=== PATIENT | female | born 1940 | race Caucasian/White ===

== ENCOUNTER → 2017-02-02 | Outpatient (CLI) | payer MEDICARE ==
--- NOTE | 2017-02-03 07:46 | MM ---
Reason for exam: screening (asymptomatic). Last mammogram was performed 1 year ago. History: Patient is postmenopausal and has history of other cancer at age 55. Took estrogen for 20 years beginning at age 40. Physical Findings: A clinical breast exam by your physician is recommended on an annual basis and results should be correlated with mammographic findings. MG 3D Screening Mammo W/Cad Bilateral CC and MLO view(s) were taken. Prior study comparison: January 23, 2016, bilateral MG 3d screening mammo w/cad. October 24, 2014, bilateral MG screening mammo w CAD. There are scattered fibroglandular densities. Finding: There are stable typically benign calcifications. There is no discrete abnormality. No significant changes in finding since January 23, 2016 and October 24, 2014. ASSESSMENT: Benign, BI-RAD 2 RECOMMENDATION: Routine screening mammogram of both breasts in 1 year.
== END | disposition home or self-care (01) ==
LOC: RADMAMWWP 10:49
PROVIDERS: ATTEND Family Medicine
DX: Z12.31 Encounter for screening mammogram for malignant neoplasm of breast (principal)
CPT/HCPCS: 77063; G0202

== ENCOUNTER → 2017-11-26 | Outpatient (CLI) | payer MEDICARE ==
--- NOTE | 2017-11-26 10:02 | US ---
EXAMINATION TYPE: US duplex aorta DATE OF EXAM: 11/26/2017 COMPARISON: MRI chest 2016 CLINICAL HISTORY: I71.9 Aortic aneurysm of unspecified site w/o rupture; controlled HTN EXAM MEASUREMENTS: Abdominal Aorta: Proximal: 2.5cm Transverse Mid: 2.2cm Transverse Distal: 1.5cm Transverse Bifurcation: Right AVELINO 1.1cm Transverse; Left AVELINO 1.1cm Transverse Intimal wall thickening is noted in common iliac arteries especially on left. IMPRESSION: Mild degree atherosclerosis of the abdominal aorta and its branches with no sonographic e vidence of abdominal aortic aneurysm in the visualized portions of the abdominal aorta.
== END | disposition home or self-care (01) ==
LOC: RADUSWWP 09:24
PROVIDERS: ATTEND Family Medicine
DX: I70.0 Atherosclerosis of aorta (principal)
CPT/HCPCS: 93979

== ENCOUNTER → 2018-04-05 | Outpatient (CLI) | payer MEDICARE ==
--- NOTE | 2018-04-05 14:25 | BD ---
EXAMINATION TYPE: Axial Bone Density DATE OF EXAM: 04/05/2018 COMPARISON: NONE CLINICAL HISTORY: Postmenopausal female. Osteoporosis screening Height: 5 FT 2 IN Weight: 189 FRAX RISK QUESTIONS: Secondary Osteoporosis: 3. Menopause before 45: YES RISK FACTORS HISTORY OF: Family History of Osteoporosis: YES Active: YES Postmenopausal woman: TOTAL HYST AGE 40 Take estrogen and/or progesterone medications: TOOK HORMONES FROM [age] NO LONGER TAKES Lost more than 2 inches in height since high school: YES MEDICATIONS: Additional Medications: ATORVASTATIN, ATTENLOL, BABY ASPIRIN, PEPCID, VIT D, Additional History: EXAM MEASUREMENTS: Bone mineral densitometry was performed using the [employer] System. Bone mineral density as measured about the Lumbar spine is: ----- L1-L4(G/cm2): 1.426 T Score Values are as follows: ----- L2: 1.4 ----- L3: 2.2 ----- L4: 2.2 ----- L1-L4: 2.1 Bone mineral density has: INCREASED 1.8 % since study of: 2015 Bone mineral density about the R hip (g/cm2): 0.895 Bone mineral density about the L hip (g/cm2): 0.852 T Score values are as follows: -----R Neck: -1.0 -----L Neck: -1.3 -----R Total: -0.8 -----L Total: -0.3 Bone mineral density has: DECREASED -5.0 % since study of: 2015 IMPRESSION: Osteopenia (T Score between -2.5 and -1) with regards to the left femur. There is slightly increased risk of fracture and the patient may be considered for treatment. Re-Screen 2-5 years. NOTE: T-SCORE=SD OF THE YOUNG ADULT MEAN.
--- NOTE | 2018-04-11 10:10 | MM ---
Reason for exam: screening (asymptomatic). Last mammogram was performed 1 year and 2 months ago. History: Patient is postmenopausal and has history of other cancer at age 55. Took estrogen for 20 years beginning at age 40. Physical Findings: A clinical breast exam by your physician is recommended on an annual basis and results should be correlated with mammographic findings. MG 3D Screening Mammo W/Cad Bilateral CC and MLO view(s) were taken. Prior study comparison: February 02, 2017, bilateral MG 3d screening mammo w/cad. January 23, 2016, bilateral MG 3d screening mammo w/cad. There are scattered fibroglandular densities. No significant changes when compared with prior studies. ASSESSMENT: Negative, BI-RAD 1 RECOMMENDATION: Routine screening mammogram of both breasts in 1 year.
== END | disposition home or self-care (01) ==
LOC: RADMAMWWP 13:01
PROVIDERS: ATTEND Family Medicine
DX: Z12.31 Encounter for screening mammogram for malignant neoplasm of breast (principal); M85.852 Other specified disorders of bone density and structure, left thigh
CPT/HCPCS: 77063; 77067; 77080

== ENCOUNTER → 2018-08-31 | Outpatient (CLI) | payer MEDICARE ==
[2018-08-31 12:15] LABS: ALT 30 U/L (9-52); AST 20 U/L (14-36); Albumin 4.3 g/dL (3.5-5.0); Alkaline Phosphatase 63 U/L (38-126); Anion Gap 6 mmol/L; Basophils # (A) 0.1 k/uL (0-0.2); Basophils % (A) 1 %; Blood Urea Nitrogen 18 mg/dL (7-17); Calcium 9.6 mg/dL (8.4-10.2); Carbon Dioxide 29 mmol/L (22-30); Chloride 107 mmol/L (98-107); Eosinophils # (A) 0.1 k/uL (0-0.7); Eosinophils % (A) 2 %; Glucose 102 mg/dL (74-99); HCT 45.1 % (34.0-46.0); HGB 14.5 gm/dL (11.4-16.0); Lymphocytes # (A) 1.5 k/uL (1.0-4.8); Lymphocytes % (A) 29 %; MCHC 32.1 g/dL (31.0-37.0); MCV 93.2 fL (80.0-100.0); Mean Platelet Volume 10.6; Monocytes # (A) 0.4 k/uL (0-1.0); Monocytes % (A) 8 %; Neutrophils % (A) 58 %; Partial Thromboplastin Time 23.1 sec (22.0-30.0); Platelet Count 251 k/uL (150-450); Potassium 4.6 mmol/L (3.5-5.1); Prothrombin Time 10.5 sec (9.0-12.0); RBC 4.84 m/uL (3.80-5.40); RDW 14.7 % (11.5-15.5); Sodium 142 mmol/L (137-145); Total Bilirubin 0.5 mg/dL (0.2-1.3); Total Protein 7.1 g/dL (6.3-8.2); WBC 5.2 k/uL (3.8-10.6)
[2018-08-31 12:30] LABS: Appearance,Urine Clear (Clear); Bilirubin,Urine Negative (Negative); Blood,Urine Negative (Negative); Color,Urine Yellow; Glucose,Urine (UA) Negative (Negative); Ketones,Urine Negative (Negative); Leukocyte Esterase,Urine Negative (Negative); Nitrite,Urine Negative (Negative); PH, Urine 5.5 (5.0-8.0); Protein,Urine Negative (Negative); Specific Gravity,Urine 1.023 (1.001-1.035); Urobilinogen,Urine <2.0 mg/dL (<2.0)
== END | disposition home or self-care (01) ==
LOC: LABPAT 11:07
PROVIDERS: ATTEND Orthopaedic Surgery
DX: Z01.812 Encounter for preprocedural laboratory examination (principal); M17.11 Unilateral primary osteoarthritis, right knee
CPT/HCPCS: 36415; 80053; 81003; 85025; 85610; 85730; 87070

== ENCOUNTER → 2018-08-31 | Outpatient (CLI) | payer MEDICARE ==
[2018-08-31 22:34] LABS: Hemoglobin A1C 6.2 % (4.0-6.0)
== END ==
LOC: LABWHC1 11:02
PROVIDERS: ATTEND Family Medicine
DX: Z01.812 Encounter for preprocedural laboratory examination (principal); E11.9 Type 2 diabetes mellitus without complications
CPT/HCPCS: 36415; 83036

== ENCOUNTER 2018-09-12 09:14 | Inpatient (IN) | payer MEDICARE ==
[~2018-09-12 09:14] MED LIST: ACETAMINOPHEN TAB 500 MG TAB PO ONE; LIDOCAINE 1% 20 ML VIAL (10MG/ML) FOR IV START INTRADERMA PRN; ONDANSETRON 4 MG/2 ML VIAL IVP ONE; TRANEXAMIC ACID 1,000 MG in SODIUM CHLORIDE 0.9% 100 ML IVPB ONE; ceFAZolin IN SWFI 2 GM/20 ML SYRINGE IVP ONE
[2018-09-12 11:02] LABS: Glucose,Whole Blood 107 mg/dL (75-99)
[2018-09-12] MEDS: LACTATED RINGERS 1,000 ML IV SCH (11:02)
[2018-09-12] MEDS ORDERED: DEXAMETHASONE SOD PHOS (MDV) 100 MG/10 ML VIAL IV ONE (11:05)
[2018-09-12] MEDS ORDERED: fentaNYL (PF) 50 MCG/ML 2 ML AMP IV ONE (11:17)
[2018-09-12] MEDS ORDERED: MIDAZOLAM (PF) 2 MG/2 ML VIAL IV ONE (11:17)
[2018-09-12] MEDS ORDERED: LIDOCAINE 1% INJ 10MG/ML (20 ML MDV) ONE (12:14)
[2018-09-12] MEDS ORDERED: MIDAZOLAM 2 MG/2 ML VIAL ONE (12:14)
[2018-09-12] MEDS ORDERED: TRANEXAMIC ACID 1,000 MG/10 ML VIAL ONE (12:14)
[2018-09-12] MEDS ORDERED: SODIUM CHLORIDE 0.9% 100 ML BAG ONE (12:14)
[2018-09-12] MEDS ORDERED: PROPOFOL 10 MG/ML 20 ML VIAL IV ONE (12:14)
[2018-09-12] MEDS ORDERED: ROPIVACAINE 1,100 MG, SODIUM CHLORIDE 0.9% 500 ML 330 ML MISCELLANE PRN ×2 (12:39)
--- NOTE | 2018-09-12 12:42 | P.ONQ ---
Anesthesiology Proc Note - PNB - Peripheral Nerve Block Performed Right Adductor Canal Infusion Time Out Performed: Yes Procedure Start Time: 11:17 Indication: Acute Post-Operative Pain Specifically requested for management of pain by DrRicardo: Sam Alvarado Sedation Type: Sedate with meaningful contact maintained Preparation: Sterile Prep Position: Supine Catheter Depth at Skin (cm): 10 Catheter: Indwelling Needle Types: Other (see comment) (pajunk) Needle Size: 100mm (4") Needle Gauge: 18 Technique: Ultrasound Injectate: 0.5% Ropivacaine (see comment for volume) (20) Blood Aspirated: No Pain Paresthesia on Injection Noted: No Resistance on Injection: Normal Events: Uneventful and Well Tolerated
[2018-09-12] MEDS: ROPIVACAINE 246.25 MG, EPINEPHrine 0.5 MG, KETOROLAC 30 MG, cloNIDine HCL/PF 80 MCG, WA... MISCELLANE ONE ×10 (13:06→14:08)
[2018-09-12] MEDS ORDERED: ceFAZolin 3,000 MG in SODIUM CHLORIDE 0.9% IRRIGATIO 3,000 ML IRRIGATION ONE (13:08)
[2018-09-12] MEDS ORDERED: LACTATED RINGERS 1,000 ML IV ONE (14:16)
--- NOTE | 2018-09-12 14:23 | P.OP ---
Date of Procedure: 09/12/18 Procedure(s) Performed: PREOPERATIVE DIAGNOSIS: Right knee severe osteoarthritis with genu varum POSTOPERATIVE DIAGNOSIS: Right knee severe osteoarthritis with genu varum; 2. Diminished bone quality/osteopenia/osteoporosis OPERATION: Right knee cemented total replacement arthroplasty. ANESTHESIA: Spinal ESTIMATED BLOOD LOSS: 100 ml. HOUSE PAINTER HELPER: Katherine Conroy PA-C (assistance with: patient positioning, retraction, exposure, hemostasis, leg positioning, implantation, irrigation, closure, dr iris) COMPLICATIONS: None apparent. COMPONENTS IMPLANTED: Persona system from [employer] with tibial stem extension INDICATIONS: Mrs. Hidalgo is a 78 year old female with a history of knee osteoarthritis. The patient's knee is end-stage, and conservative management has failed. The operation of knee replacement has been discussed at length in the office, as well as potential risks and complications. These are inclusive of, but not limited to: bleeding, infection, scarring, discomfort, blood vessel and nerve damage, need for further surgery, failure to relieve symptoms, persistence, recurrence, or worsening of problems, loosening, dislocation, wear, blood clot, pulmonary embolism, , gait dysfunction, stiffness, and other risks as discussed in the office. The patient elects to proceed and the consent form has been signed. PROCEDURE: The patient was taken to the operating room and positioned on the operating room table in the supine position. Anesthesia was initiated. Care was taken to make sure that all pressure points were adequately padded. The operative lower extremity was prepped and draped in the usual aseptic fashion using ChloraPrep. Ioban drape was used for the case and the patient received intravenous antibiotics within one hour of the incision. A pneumotourniquet and leg harris were used for the case. The limb was exsanguinated with an Esmarch bandage and the tourniquet was inflated to 350 mmHg. Time-out was called confirming the patient's identity, side, procedure and administration of antibiotics. The incision was then created midline directly over the knee, carried down through skin and into the subcutaneous tissues and down to fascia. Full thickness subcutaneous medial flap was developed. Medial parapatellar arthrotomy was performed and the interior of the knee was inspected. There was end-stage osteoarthritis of the knee with a mild to moderate genu varum type deformity. The fat pad was excised and proximal medial release on the tibia was completed using meticulous dissection and a curved osteotome. The anterior cruciate ligament was taken down. Note was made of significant attrition of the anterior and significant degenerative appearance of the posterior cruciate ligaments. The exposure was excellent. The knee was flexed 90 degrees and the patella was everted. A spot was chosen on the femur approximately 1 cm anterior to the posterior cruciate ligament insertion and an intramedullary hole was created within the femur. The intramedullary guide was then set to 5 degrees of valgus. The distal cutting block was attached and pinned into position. An appropriate amount of distal femoral resection was set. The oscillating saw was then used to make the distal femoral cut. This cut was confirmed to be flat with the flat end of an osteotome. The retractors were placed around the tibia and the tibial surface was addressed. The angle and depth of resection was adjusted using an extramedullary cutting guide. The guide had a built-in 3 degree posterior slope cut. Once the cutting guide was adjusted appropriately and in line with the axis of the tibia and confirmed to be in good position in relation to the second metatarsal and transmalleolar axis, the tibial cut was then created with protection of the posterior neurovascular structures and the collateral ligaments. Note was made of diminished bone quality and therefore a short tibial stem extension was planned. The tibial cut surface was removed and sized. Femoral sizing was then accomplished using anterior referencing. Care was taken to analyze the posterior condyles for signs of deficiency or severe wear, and adjustments to the guide were made, as appropriate. 3 degree external rotation pins were placed. The cutting jig for the femur was applied to these pins. The planned cuts were further analyzed prior to performing them with the oscillating saw. No femoral notching was produced. Bone fragments were removed and the cut surfaces were finished, as necessary, with a reciprocating saw. Spacer block technique was then used to confirm that the flexion and extension gaps were equal. Soft tissue releases and adjustment of the tibial and/or f emoral cuts were made, as necessary, until the gaps were equal. This included release of the posterior cruciate ligament, which was tight in this patient and, if left unreleased, would have resulted in poor kinematics and possibly early loosening. The femur was then further finished for a posterior cruciate ligament substituting component. Patellar resurfacing was performed using a reamer. The size of the required patellar component was estimated and the patellar surface was then reamed down to a residual thickness which would recreate the burns paiute thickness with the component. The exact placement of the patellar component was adjusted for position based on preoperative x-rays and intraoperative findings. Prior to placing trial components, anesthetic solution consisting of ropivicaine with epinephrine, ketorolac, and clonidine was injected carefully and methodically in a grid pattern using aspiration technique into the soft tissue around the knee circumferentially, starting with the deeper tissues first and progressing to fascia, and then finally the skin/subcutaneous tissue. Particular care was taken when injecting the posterior capsule. The trial components were inserted. The tibial tray was allowed to self center and the patella was noted to track very well. The position of the tibial component was marked and the tibia was then finished for a stemmed tibial component. Cement was mixed on the back table and applied to the final components. Trial components were removed and the cut surfaces of the bone were pulse lavaged thoroughly and dried. Cement was then applied to the tibial surface and pressurized into the surface using finger pressurization technique. The tibial component with stem extension was then applied and excess cement was removed after it was impacted securely and noted to be flush with the cut surface. In similar fashion, the cement was applied to the cut femoral surface, pressurized in using finger pressurization and the component was impacted into place. Excess cement was removed. The polyethylene spacer was then implanted and locked into position. The patellar component was then applied in similar technique and a patellar clamp was used to hold the patella in place as the cement hardened. Once the cement had fully hardened, the knee was reinspected. Any other cement extrusion was removed and final kinematic testing showed range of motion from 0 to 130 degrees with excellent stability, both medially and laterally and appropriate alignment of the leg. Patellar tracking was excellent. The knee was then thoroughly pulse lavaged with normal saline. The tourniquet was deflated and hemostasis was obtained with electrocautery and IV tranexamic acid, 1 g given at the start of the operation and 1 g at the start of closure. Closure was with #2 Ethibond in the fascia/capsule and supplemented with #2 Quill, 2-0 Vicryl suture was used for the subcutaneous tissues and 3-0 Quill for the skin. Dermabond/Steri-Strips were then applied. A lightly compressive dressing was applied using Webril and an Chuy wrap. The patient was then transferred to flower hospital[facility] and taken to the recovery room in stable condition. Sponge and needle counts were correct.
[2018-09-12] MEDS ORDERED: ONDANSETRON 4 MG/2 ML VIAL IVP PRN (14:58)
[2018-09-12] MEDS ORDERED: HYDROmorphone 0.5 MG/0.5 ML SYRINGE IVP PRN ×3 (14:58)
[2018-09-12] MEDS ORDERED: NA PHOS,M-B/NA PHOS,DI-BA 133 ML ENEMA RECTAL PRN (14:58)
[2018-09-12] MEDS ORDERED: NALOXONE 0.4 MG/ML 1 ML VIAL IV PRN (14:58)
[2018-09-12] MEDS ORDERED: BISACODYL 10 MG SUPP RECTAL PRN (14:58)
[2018-09-12] MEDS ORDERED: MAGNESIUM HYDROXIDE 2,400 MG/10 ML CUP PO PRN (14:58)
[2018-09-12] MEDS ORDERED: HYDROcodone/APAP 5-325MG 1 EACH TAB PO PRN (14:58)
[2018-09-12] MEDS: HYDROmorphone 0.5 MG/0.5 ML SYRINGE IVP PRN ×2 (15:22→15:32)
--- NOTE | 2018-09-12 15:25 | XR ---
EXAMINATION TYPE: XR knee limited RT DATE OF EXAM: 09/12/2018 CLINICAL HISTORY: Right knee pain and arthritis status post total knee replacement. TECHNIQUE: Portable AP and crosstable lateral views of the right knee are obtained immediately posto peratively. COMPARISON: None FINDINGS: Metallic hardware from total right knee arthroplasty is seen and appears satisfactory in a lignment and position. There is evidence of recent surgery with diffuse subcutaneous gas and soft ti ssue swelling noted. IMPRESSION: METALLIC HARDWARE FROM TOTAL RIGHT KNEE ARTHROPLASTY IS SATISFACTORY IN ALIGNMENT.
[2018-09-12 17:01] VITALS: BMI 34.6
[2018-09-12 17:15] LABS: Glucose,Whole Blood 124 mg/dL (75-99)
[2018-09-12] MEDS: HYDROcodone/APAP 5-325MG 1 EACH TAB PO PRN (17:51)
[2018-09-12] MEDS ORDERED: ATENOLOL 25 MG TAB PO SCH (21:00)
[2018-09-12] MEDS ORDERED: SENNOSIDES-DOCUSATE SODIUM 1 EACH TAB PO SCH (21:00)
[2018-09-12 21:28] LABS: Glucose,Whole Blood 134 mg/dL (75-99)
[2018-09-12] MEDS ORDERED: TEMAZEPAM 15 MG CAP PO PRN (22:00)
[2018-09-12] MEDS: NIFEdipine XL 30 MG TAB.ER.24 PO SCH (22:11)
[2018-09-12] MEDS: ceFAZolin IN SWFI 2 GM/20 ML SYRINGE IVP SCH (22:11)
[2018-09-12] MEDS: LISINOPRIL 20 MG TAB PO SCH (22:12)
[2018-09-12] MEDS: FAMOTIDINE 20 MG TAB PO SCH (22:12)
--- NOTE | 2018-09-13 00:10 | CONS ---
CONSULTATION DATE OF CONSULTATION: September 12, 2018. REASON FOR CONSULTATION: Medical management requested by Dr. Alvarado. CONSULTATIONS: This is a very pleasant 78-year-old patient of Dr. Castillo who has undergone a right total knee arthroplasty. Postprocedure pain is controlled. No nausea, vomiting. No chest pain or short of breath. Did tolerate a light supper. at the bedside. Chronic stable medical conditions include GERD, hypertension, hyperlipidemia, anxiety, depression. REVIEW OF SYSTEMS: CONSTITUTIONAL: None. HEENT: None. RESPIRATORY: None. CARDIOVASCULAR: None. GASTROINTESTINAL: None. GENITOURINARY: None. MUSCULOSKELETAL: Arthritic pain in joints. DERMATOLOGICAL, HEMATOLOGIC, LYMPHATIC: none. PSYCHIATRY none. NEUROLOGICAL: None. PAST MEDICAL HISTORY: GERD, hyperlipidemia, hypertension, skin cancer. PAST SURGICAL HISTORY: Adenoidectomy, appendectomy, , hysterectomy, bilateral cataracts. PSYCH HISTORY: Anxiety, depression. SOCIAL HISTORY: No smoking. No alcohol. 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 . FAMILY HISTORY: Throat cancer. HOME MEDICATIONS: 1. Effexor XR 75 mg a day. 2. Altace 500 mg b.i.d. 3. Procardia XL 30 mg b.i.d. 4. Multivitamin tab p.o. daily. 5. Pepcid 20 mg b.i.d. 6. Vitamin D3, 41677 units p.o. daily. 7. Lipitor 10 mg p.o. daily. 8. Tenormin 25 mg q.h.s. 9. Aspirin 81 mg p.o. daily. 10.Senokot S 1 tablet p.o. b.i.d. 11.Xarelto 10 mg p.o. daily. 12.Sedalia 5 1-2 tablets q.4h 6 p.r.n. 13.Aspirin 81 mg daily. ALLERGIES: None. PHYSICAL EXAMINATION: VITAL SIGNS: Temperature 98.1, pulse 54, respiratory 18, blood pressure 144/71, pulse ox 96% on 2 L. GENERAL APPEARANCE: Well built, BMI 34.6. Sitting up, awake. EYES: Pupils are equal. Conjunctivae normal. HEENT: External appearance of nose and ears normal. Oral cavity normal. NECK: JVD not raised. Mass not palpable. RESPIRATORY: Effort normal. LUNGS fair entry. CARDIOVASCULAR: First and second sounds normal. No edema. ABDOMEN: Soft, nontender. Liver and spleen not palpable. LYMPHATIC: No lymph nodes palpable in the neck and axilla. PSYCHIATRY: Alert and oriented x3. Mood and affect normal. NEUROLOGICAL: Pupils equal. Cranial nerves grossly intact. Power and sensation grossly intact. MUSCULOSKELETAL: Dressing over the right knee. INVESTIGATIONS: Accu-Cheks noted. ASSESSMENT: 1. Right total knee arthroplasty. 2. Obesity, BMI 34.6. 3. Gastroesophageal reflux disease. 4. Essential hypertension. 5. Hyperlipidemia. 6. Anxiety and depression not otherwise specified. PLAN: Home medications to continue. Patient DVT prophylaxis per Surgery. Care was discussed with the patient and . Questions were answered. The patient is on Xarelto. Thank you Dr. Alvarado. Copy to Dr. Castillo. MMLINDSEYL / IJN: [id number] /
[2018-09-13] MEDS: HYDROcodone/APAP 5-325MG 1 EACH TAB PO PRN (04:39)
[2018-09-13] MEDS: ceFAZolin IN SWFI 2 GM/20 ML SYRINGE IVP SCH (04:41)
[2018-09-13 07:22] LABS: Glucose,Whole Blood 121 mg/dL (75-99)
[2018-09-13 07:55] LABS: Basophils % (A) 0 %; Eosinophils % (A) 0 %; HGB 12.7 gm/dL (11.4-16.0); Lymphocytes # (A) 1.3 k/uL (1.0-4.8); Lymphocytes % (A) 9 %; MCH 29.3 pg (25.0-35.0); MCHC 31.1 g/dL (31.0-37.0); MCV 94.4 fL (80.0-100.0); Mean Platelet Volume 10.6; Monocytes # (A) 1.1 k/uL (0-1.0); Monocytes % (A) 8 %; Neutrophils # (A) 11.1 k/uL (1.3-7.7); Neutrophils % (A) 81 %; Platelet Count 229 k/uL (150-450); RBC 4.34 m/uL (3.80-5.40); WBC 13.7 k/uL (3.8-10.6)
[2018-09-13] MEDS: LACTATED RINGERS 1,000 ML IV SCH (08:03)
[2018-09-13] MEDS: FAMOTIDINE 20 MG TAB PO SCH (08:09)
[2018-09-13] MEDS: NIFEdipine XL 30 MG TAB.ER.24 PO SCH (08:09)
[2018-09-13] MEDS: LISINOPRIL 20 MG TAB PO SCH (08:09)
[2018-09-13 08:41] VITALS: RESP 16
[2018-09-13] MEDS ORDERED: ATORVASTATIN 10 MG TAB PO SCH (09:00)
[2018-09-13] MEDS ORDERED: MULTIVITAMINS, THERA 1 EACH TAB PO SCH (09:00)
[2018-09-13] MEDS ORDERED: VENLAFAXINE HCL ER 75 MG CAP PO SCH (09:00)
[2018-09-13] MEDS ORDERED: RIVAROXABAN 10 MG TAB PO SCH (09:00)
[2018-09-13 11:27] LABS: Glucose,Whole Blood 95 mg/dL (75-99)
--- NOTE | 2018-09-13 12:02 | P.DS ---
Providers Date of admission: 09/12/18 10:27 Expected date of discharge: 09/13/18 Attending physician: Sam Alvarado Consults: 09/12/18 14:58 Consult Physician Routine Consulting Provider: Bennett Castillo Consult Reason/Comments: Medical Management Do you want consulting provider notified?: Yes 09/12/18 16:27 Consult Physician Routine Consulting Provider: Chris Rocha Consult Reason/Comments: medical mangement Do you want consulting provider notified?: Already Contacted Primary care physician: Bennett Castillo - Discharge Diagnosis(es) (1) Status post total right knee replacement Status: Acute (2) Osteoarthritis of right knee Status: Acute (3) GERD (gastroesophageal reflux disease) Status: Acute (4) Hypertension Status: Acute (5) Hyperlipidemia Status: Acute Hospital Course: This is a pleasant 78-year-old female last seen in our office with complaints of right knee pain. Patient has known history of degenerative arthritis of the right knee and presented to discuss options. After discussion and consideration, patient elected to proceed with a total knee arthroplasty of the right knee. The patient was seen preoperatively and medically cleared for surgery by her primary care physician. The patient was admitted to [facility] and underwent right total knee arthroplasty on 09/12/[address] Alvarado. The procedure was performed without complications or sequelae. The patient has done well postoperatively. The patient was seen and evaluated at bedside today and denies any new complaints. Pain is reasonably controlled. Dressing is clean dry and intact. Incision looks fine with no erythema or active drainage. Calf is soft and nontender. The patient has full foot and ankle motion without difficulty. Patient's right lower extremity is neurovascular intact. Patient is orthopedically stable for discharge to home today. Pertinent Studies: Laboratory Tests 09/13/18 07:07 WBC 13.7 H RBC 4.34 Hgb 12.7 Hct 41.0 Patient Condition at Discharge: Stable Plan - Discharge Summary Discharge Rx Participant: Yes New Discharge Prescriptions: New HYDROcodone/APAP 5-325MG [Lincoln 5-325] 1 - 2 each PO Q4-6H PRN #50 tab PRN Reason: Pain Sennosides-Docusate Sodium [Senokot-S] 1 tab PO BID #60 tablet Rivaroxaban [Xarelto] 10 mg PO DAILY #5 tab Aspirin [Adult Low Dose Aspirin EC] 81 mg PO DAILY #1 tablet.dr Suzi Angeles Multivitamins, Thera [Multivitamin (formulary)] 1 tab PO DAILY Famotidine [Pepcid] 20 mg PO BID Ramipril [Altace] 5 mg PO BID Atorvastatin [Lipitor] 10 mg PO DAILY Atenolol [Tenormin] 25 mg PO HS NIFEdipine XL [Procardia XL] 30 mg PO BID Cholecalciferol (Vitamin D3) [Vitamin D3] 4,000 unit PO DAILY Aspirin [Adult Low Dose Aspirin EC] 81 mg PO DAILY Venlafaxine HCl [Effexor XR] 75 mg PO DAILY Discharge Medication List Aspirin [Adult Low Dose Aspirin EC] 81 mg PO DAILY 09/01/18 [History] Atenolol [Tenormin] 25 mg PO HS 09/01/18 [History] Atorvastatin [Lipitor] 10 mg PO DAILY 09/01/18 [History] Cholecalciferol (Vitamin D3) [Vitamin D3] 4,000 unit PO DAILY 09/01/18 [History] Famotidine [Pepcid] 20 mg PO BID 09/01/18 [History] Multivitamins, Thera [Multivitamin (formulary)] 1 tab PO DAILY 09/01/18 [History] NIFEdipine XL [Procardia XL] 30 mg PO BID 09/01/18 [History] Ramipril [Altace] 5 mg PO BID 09/01/18 [History] Aspirin [Adult Low Dose Aspirin EC] 81 mg PO DAILY #1 tablet. 09/12/18 [Rx] HYDROcodone/APAP 5-325MG [Lincoln 5-325] 1 - 2 each PO Q4-6H PRN #50 tab 09/12/18 [Rx] Rivaroxaban [Xarelto] 10 mg PO DAILY #5 tab 09/12/18 [Rx] Sennosides-Docusate Sodium [Senokot-S] 1 tab PO BID #60 tablet 09/12/18 [Rx] Venlafaxine HCl [Effexor XR] 75 mg PO DAILY 09/12/18 [History] Follow up Appointment(s)/Referral(s): Katherine Conroy PAC [PHYSICIAN [facility]] - 09/28/18 2:00 pm [facility], [NON-STAFF] - As Needed Bennett Castillo MD [Primary Care Provider] - 09/21/18 9:15 am [facility] Saucedo [NON-STAFF] - As Needed (Long hinged knee brace) Activity/Diet/Wound Care/Special Instructions: May bear weight as tolerated. May shower after 48 hours if no drainage. Discharge Disposition: HOME WITH HOME HEALTH SERVICES
--- NOTE | 2018-09-13 15:30 | P.PN ---
Progress Note - Text 09/13 702am 78-year-old female status post total knee replacement by Dr. Alvarado. Patient has an On-Q pump for postop pain control with adequate relief and she has a VAS of 3. Continue On-Q pump infusion
[2018-09-13 16:32] VITALS: BP 112/60; PULSE 58; TEMP 97.9
--- NOTE | 2018-09-14 06:27 | PN ---
PROGRESS NOTE DATE OF SERVICE: 09/13/2018 PRESENTING COMPLAINT: Right total knee arthroplasty. INTERVAL HISTORY: Patient is status post right total knee arthroplasty. Some pain is present. Did tolerate a meal. No nausea, vomiting. Did work with therapy. Overall feeling better. REVIEW OF SYSTEMS: Done for constitutional, cardiovascular, GI, pulmonary; relevant findings as above. CURRENT MEDICATIONS: Reviewed. PHYSICAL EXAMINATION: VITAL SIGNS: Temperature 97.6, pulse 48, respiration 16, blood pressure 137/70, pulse ox 94 percent on room air. LUNGS fair air entry. CARDIOVASCULAR: First and second sounds normal. ABDOMEN: Soft, nontender. Liver and spleen not palpable. PSYCHIATRY: Alert and oriented times three. Mood and affect normal. EXTREMITIES: Right knee in a dressing. INVESTIGATIONS: White count 13.7, hemoglobin 12.7. Accu-Cheks are noted. ASSESSMENT: 1. Right total knee arthroplasty. 2. Obesity; BMI 34.6. 3. Gastroesophageal reflux disease. 4. Essential hypertension. 5. Hyperlipidemia. 6. Anxiety and depression, not otherwise specified. 7. Mild leukocytosis likely reactive from surgery, clinically no evidence of infection. PLAN: Overall doing much better. If discharged, should follow up with her family doctor. MMODL / IJN: [id number] /
== END 2018-09-13 15:30 | disposition home health service (06) | DRG 470 ==
LOC: 2ORMAIN 10:27 → 4SSUR 15:45
PROVIDERS: ADMIT Orthopaedic Surgery; ATTEND Orthopaedic Surgery
PROC: 0SRC0J9 Replacement of Right Knee Joint with Synthetic Substitute, Cemented, Open Approach (ICD-10-PCS; principal; 2018-09-12 13:15)
DX: M17.11 Unilateral primary osteoarthritis, right knee (principal); M21.161 Varus deformity, not elsewhere classified, right knee; M81.0 Age-related osteoporosis without current pathological fracture; K21.9 Gastro-esophageal reflux disease without esophagitis; I10 Essential (primary) hypertension; E78.5 Hyperlipidemia, unspecified; F32.9 Major depressive disorder, single episode, unspecified; D72.829 Elevated white blood cell count, unspecified; E66.9 Obesity, unspecified; Z68.34 Body mass index [BMI] 34.0-34.9, adult; F41.9 Anxiety disorder, unspecified; Z79.82 Long term (current) use of aspirin; Z79.899 Other long term (current) drug therapy; Z85.828 Personal history of other malignant neoplasm of skin; Z90.710 Acquired absence of both cervix and uterus; Z98.890 Other specified postprocedural states; Z98.891 History of uterine scar from previous surgery; Z98.42 Cataract extraction status, left eye; Z98.41 Cataract extraction status, right eye; Z80.0 Family history of malignant neoplasm of digestive organs
CPT/HCPCS: 85025; 88300

== ENCOUNTER → 2019-04-18 | Outpatient (CLI) | payer MEDICARE ==
--- NOTE | 2019-04-19 10:21 | MM ---
Reason for exam: screening (asymptomatic). Last mammogram was performed 1 year ago. History: Patient is postmenopausal and has history of other cancer at age 55. Took estrogen for 20 years beginning at age 40. Physical Findings: A clinical breast exam by your physician is recommended on an annual basis and results should be correlated with mammographic findings. MG 3D Screening Mammo W/Cad Bilateral CC and MLO view(s) were taken. Prior study comparison: April 05, 2018, bilateral MG 3d screening mammo w/cad. February 02, 2017, bilateral MG 3d screening mammo w/cad. The breast tissue is heterogeneously dense. This may lower the sensitivity of mammography. Stable benign calcifications. There is no discrete abnormality. No significant changes when compared with prior studies. ASSESSMENT: Benign, BI-RAD 2 RECOMMENDATION: Routine screening mammogram of both breasts in 1 year.
== END ==
LOC: RADMAMWWP 09:09
PROVIDERS: ATTEND Family Medicine
DX: Z12.31 Encounter for screening mammogram for malignant neoplasm of breast (principal)
CPT/HCPCS: 77063; 77067

== ENCOUNTER → 2020-05-06 | Outpatient (CLI) | payer MEDICARE ==
--- NOTE | 2020-05-07 13:33 | MM ---
Reason for exam: screening (asymptomatic). Last mammogram was performed 1 year and 1 month ago. History: Patient is postmenopausal and has history of other cancer at age 55. Took estrogen for 20 years beginning at age 40. Physical Findings: A clinical breast exam by your physician is recommended on an annual basis and results should be correlated with mammographic findings. MG 3D Screening Mammo W/Cad Bilateral CC and MLO view(s) were taken. Prior study comparison: April 18, 2019, bilateral MG 3d screening mammo w/cad. April 05, 2018, bilateral MG 3d screening mammo w/cad. There are scattered fibroglandular densities. No significant changes when compared with prior studies. ASSESSMENT: Benign, BI-RAD 2 RECOMMENDATION: Routine screening mammogram of both breasts in 1 year.
== END | disposition home or self-care (01) ==
LOC: RADMAMWWP 12:45
PROVIDERS: ATTEND Family Medicine
DX: Z12.31 Encounter for screening mammogram for malignant neoplasm of breast (principal)
CPT/HCPCS: 77063; 77067

== ENCOUNTER → 2020-11-01 | Outpatient (CLI) | payer MEDICARE ==
--- NOTE | 2020-11-01 13:37 | US ---
EXAMINATION TYPE: US kidneys/renal and bladder DATE OF EXAM: 11/01/2020 COMPARISON: NONE CLINICAL HISTORY: R39.9 Urinary symptoms. Recent UTI, prior left renal stones EXAM MEASUREMENTS: Right Kidney: 10.4 x 5.6 x 5.4 cm Left Kidney: 10.8 x 4.4 x 6.0 cm Post Void Residual Volume: 8.8 mL Right Kidney: No hydronephrosis or masses seen; hyperechoic vessel rose are noted mid inferior pole suggesting vascular wall calcifications Left Kidney: mid pole shadowing calcifications noted = 1.0 x 0.9 x 0.8cm; small hyperechoic foci note d mid cortex ; hyperechoic vessel wall calcifications noted medially Bladder: wnl Bilateral Jets seen: yes, but small left ureteral jet seen Normal Post Void Residual: yes Incidental note is made of borderline thickening of the gallbladder. This could be related to incompl ete distention. IMPRESSION: 1. Nonobstructing left renal stone.
== END | disposition home or self-care (01) ==
LOC: RADUSWWP 12:06
PROVIDERS: ATTEND Family Medicine
DX: N20.0 Calculus of kidney (principal); K80.20 Calculus of gallbladder without cholecystitis without obstruction
CPT/HCPCS: 76770

== ENCOUNTER → 2021-06-19 | Outpatient (CLI) | payer MEDICARE ==
--- NOTE | 2021-06-20 09:21 | MM ---
Reason for exam: screening (asymptomatic). Last mammogram was performed 1 year and 1 month ago. History: Patient is postmenopausal and has history of other cancer at age 55. Took estrogen for 20 years beginning at age 40. Physical Findings: A clinical breast exam by your physician is recommended on an annual basis and results should be correlated with mammographic findings. MG 3D Screening Mammo W/Cad Bilateral CC and MLO view(s) were taken. XCCL view(s) were taken of the left breast. Prior study comparison: May 06, 2020, bilateral MG 3d screening mammo w/cad. April 18, 2019, bilateral MG 3d screening mammo w/cad. There are scattered fibroglandular densities. Stable benign calcifications. There is no discrete abnormality. No significant changes when compared with prior studies. ASSESSMENT: Benign, BI-RAD 2 RECOMMENDATION: Routine screening mammogram of both breasts in 1 year.
== END | disposition home or self-care (01) ==
LOC: RADMAMWWP 13:06
PROVIDERS: ATTEND Family Medicine
DX: Z12.31 Encounter for screening mammogram for malignant neoplasm of breast (principal); Z78.0 Asymptomatic menopausal state
CPT/HCPCS: 77063; 77067

== ENCOUNTER 2022-09-03 11:02 | Day surgery (SDC) | payer MEDICARE ==
[~2022-09-03 11:02] MED LIST changes: -ACETAMINOPHEN TAB 500 MG TAB PO ONE; +ACETAMINOPHEN TAB 500 MG TAB PO PRN; +HEPARIN SODIUM,PORCINE/PF 5,000 UNIT/0.5 ML SYRINGE SQ PRN; -LIDOCAINE 1% 20 ML VIAL (10MG/ML) FOR IV START INTRADERMA PRN; -ONDANSETRON 4 MG/2 ML VIAL IVP ONE; +Pre Op ABX Message 1 EACH MISC MISCELLANE ONE; -TRANEXAMIC ACID 1,000 MG in SODIUM CHLORIDE 0.9% 100 ML IVPB ONE; -ceFAZolin IN SWFI 2 GM/20 ML SYRINGE IVP ONE
[2022-09-03] MEDS ORDERED: DEXAMETHASONE SOD PHOSPHATE 4 MG/ML 1 ML VIAL IV ONE (11:45)
[2022-09-03] MEDS ORDERED: ALPRAZolam 0.25 MG TAB PO PRN (11:45)
[2022-09-03] MEDS ORDERED: LACTATED RINGERS 1,000 ML IV SCH (11:45)
[2022-09-03] MEDS ORDERED: fentaNYL (PF) 50 MCG/ML 2 ML AMP IV PRN (11:45)
[2022-09-03] MEDS ORDERED: ONDANSETRON 4 MG/2 ML VIAL IVP ONE (11:45)
[2022-09-03 12:07] LABS: Glucose,Whole Blood 107 mg/dL (70-110)
[2022-09-03] MEDS ORDERED: LIDOCAINE 1% INJ 10MG/ML (20 ML MDV) SQ ONE (12:39)
--- NOTE | 2022-09-03 12:55 | P.NAPBC ---
NAPBC Queries - NAPBC Queries Was patient's case review presented at [facility] tumor board? If no, comment.: Yes Was patient's pathology reviewed at [facility]? If no, comment.: Yes Was breast conservation surgery offered? If no, comment.: Yes Was sentinel node biopsy offered? If no, comment.: Yes Was diagnosis confirmed by percutaneous core biopsy? If no, comment.: Yes Is patient mastectomy patient?: No Was a preop referral to reconstructive surgeon offered?: Yes Clinical Stage: 1
--- NOTE | 2022-09-03 13:54 | NM ---
EXAMINATION TYPE: NM sentinel node injection DATE OF EXAM: 09/03/2022 COMPARISON: NONE HISTORY: Breast cancer TECHNIQUE AND FINDINGS: The procedure of sentinel lymph node injection was explained to the patient. The benefits, alternatives, and risks were discussed. An informed consent was then obtained. Overlying skin is cleaned with sterile alcohol. Following this, 524 uCi Tc99m Tilmanocept was inject ed in the upper outer aspect of the left nipple intradermally. The patient tolerated the procedure well without any immediate complication. The patient was kept in the radiology department for short stay after the procedure and then taken to surgery for surgical p rocedure what is presumed intraoperative gamma probe will be used for sentinel lymph node detection. IMPRESSION: Left breast radiotracer injection for sentinel node localization as above.
[2022-09-03] MEDS ORDERED: KETOROLAC 15 MG/ML 1 ML VIAL ONE (14:40)
[2022-09-03] MEDS ORDERED: HYDROmorphone (PF) 1 MG/ML ONE (14:40)
[2022-09-03] MEDS ORDERED: LIDOCAINE 2% INJ 20 MG/ML (2 ML VIAL) ONE (14:40)
[2022-09-03] MEDS ORDERED: PROPOFOL 10 MG/ML 20 ML VIAL IV ONE (14:40)
[2022-09-03] MEDS ORDERED: fentaNYL (PF) 50 MCG/ML 2 ML AMP ONE (14:40)
[2022-09-03] MEDS ORDERED: SODIUM CHLORIDE 0.9% 100 ML with ceFAZolin 2,000 MG IV ONE ×2 (14:46)
[2022-09-03] MEDS ORDERED: METHYLENE BLUE 10 MG/ML (10 ML VIAL) MISCELLANE ONE (14:59)
[2022-09-03] MEDS ORDERED: BUPIVACAINE (PF) 0.25% 30 ML VIAL SQ ONE ×2 (15:52→16:15)
[2022-09-03] MEDS ORDERED: LACTATED RINGERS 1,000 ML IV ONE (16:16)
[2022-09-03 16:36] VITALS: TEMP 97.5
[2022-09-03] MEDS ORDERED: traMADol 50 MG TAB PO PRN (16:38)
[2022-09-03] MEDS ORDERED: NALOXONE 0.4 MG/ML 1 ML VIAL IV PRN (16:38)
[2022-09-03] MEDS ORDERED: ACETAMINOPHEN TAB 325 MG TAB PO PRN (16:38)
--- NOTE | 2022-09-03 16:42 | P.OP ---
Date of Procedure: 09/03/22 Procedure(s) Performed: PREOPERATIVE DIAGNOSIS: Left breast cancer POSTOPERATIVE DIAGNOSIS: Same PROCEDURE: Left Breast wire localization lumpectomy with sentinel lymph node biopsy SURGEON: Sukumar EBL: 25 mL ANESTHESIA: General COMPLICATIONS: None OPERATIVE PROCEDURE: Patient was placed on the operating room table in the supine position. 2 mL of methylene blue was injected into the subareolar space. The breast was then massaged for 5 minutes. The breast was prepped and draped in usual sterile fashion. The left axilla was addressed at that time. The hot spot in the left axilla was identified. The counts were very low externally. A small curvilinear incision was made using the scalpel. Dissection down through the subcutaneous tissues took place using electrocautery. Using the neoprobe I identified a total of a single 1.5 cm lymph node that appeared fatty replaced. There was no induration. There was no blue color in the axilla. After removing that lymph node there was minimal residual radioactivity. I did have a small area of fatty tissue that may have contained a lymphatic or a very tiny lymph node that was also sent and labeled a sentinel node however this may represent just fatty tissue and lymphatics. These were both sent to pathology for permanent sectioning. The surgical site was inspected and no bleeding was seen. The subcutaneous tissues were closed using 3-0 Vicryl sutures. The skin was closed using 4-0 Monocryl sutures. The wire entrance site was then addressed. This was present at the 4:00 location. A curvilinear incision was made adjacent to the wire entrance site. I followed the wire down into the breast tissue. An adequate lumpectomy specimen then took place around the wire. Margins of 1.5-2 cm worth attempted to be achieved. Palpation of the specimen suggested that the medial margin was somewhat close. I took an additional margin medially and this margin was painted the appropriate color on the new margin side. The initial specimen was also painted the appropriate 6 colors. Clips were used to identify the lumpectomy cavity. The clip was confirmed to be within the lumpectomy specimen by radiology. The subcutaneous tissues were closed using 3-0 Vicryl sutures. The skin was closed using a running 4-0 Monocryl stitch. Skin glue wa s then applied. DISPOSITION: Stable to recovery room
[2022-09-03 18:40] VITALS: RESP 16
[2022-09-03 19:47] VITALS: BP 152/70; PULSE 67
== END 2022-09-03 19:37 | disposition home or self-care (01) ==
LOC: OR 11:02
PROVIDERS: ATTEND Surgery
DX: D05.12 Intraductal carcinoma in situ of left breast (principal); N60.12 Diffuse cystic mastopathy of left breast; I10 Essential (primary) hypertension; E78.5 Hyperlipidemia, unspecified; Z79.899 Other long term (current) drug therapy
CPT/HCPCS: 19301; 38525; 88342; 88307; 88341; 77065; 76098; 19285; 38792; C1819; A9520; J2405; J0690; J2001 ×2; Q9968; J3010; J1170; J1885; J2704; J1644

== ENCOUNTER → 2023-02-23 | Outpatient (CLI) | payer MEDICARE ==
--- NOTE | 2023-02-23 13:53 | CA ---
Transthoracic Echo Report Name: Maranda Hidalgo Age: 82 Gender: F : 1940 Exam Date: 02/23/2023 11:22 Exam Location: [facility] Echo Ht (in): 62 Wt (lb): 195 Ordering Physician: Bennett Castillo MD Attending/Referring Phys: Lindsey Cintron Rules Examiner Amber iYn RDCS Procedure CPT: Indications: I34.0 NONRHEUMATIC MITRAL (VALVE) INSUFFICIENCY Cardiac Hx: Technical Quality: Fair Contrast 1: Total Dose (mL): Contrast 2: Total Dose (mL): MEASUREMENTS (Male / Female) Normal Values 2D ECHO LV Diastolic Diameter PLAX 5.2 cm 4.2 - 5.9 / 3.9 - 5.3 cm LV Systolic Diameter PLAX 3.1 cm IVS Diastolic Thickness 1.3 cm 0.6 - 1.0 / 0.6 - 0.9 cm LVPW Diastolic Thickness 1.4 cm 0.6 - 1.0 / 0.6 - 0.9 cm LV Relative Wall Thickness 0.5 RV Internal Dim ED PLAX 2.4 cm LA Volume 156.3 cm??? 18 - 58 / 22 - 52 cm??? LA Volume Index 77.8 cm???/m??? 16 - 28 cm???/m??? M-MODE Aortic Root Diameter MM 3.1 cm LA Systolic Diameter MM 5.4 cm LA Ao Ratio MM 1.7 AV Cusp Separation MM 2.2 cm DOPPLER AV Peak Velocity 136.4 cm/s AV Peak Gradient 7.4 mmHg AV Mean Velocity 96.9 cm/s AV Mean Gradient 4.1 mmHg AV Velocity Time Integral 31.7 cm LVOT Peak Velocity 122.2 cm/s LVOT Peak Gradient 6.0 mmHg LVOT Velocity Time Integral 31.9 cm MV Area PHT 2.7 cm??? Mitral E Point Velocity 114.7 cm/s Mitral A Point Velocity 98.5 cm/s Mitral E to A Ratio 1.2 MV Deceleration Time 278.5 ms MV E' Velocity 5.9 cm/s Mitral E to MV E' Ratio 19.3 TR Peak Velocity 251.5 cm/s TR Peak Gradient 25.3 mmHg Right Ventricular Systolic Press 30.2 mmHg FINDINGS Left Ventricle Mildly increased left ventricular wall thickness. Left ventricular cavity size normal. Normal left ventricular systolic function with no obvious regional wall motion abnormalities. Left ventricular ejection fraction is estimated at 55-60 %. Right Ventricle Normal right ventricular size and function. Right ventricular systolic pressure within normal limits. Right Atrium Normal right atrial size. Left Atrium Severely increased left atrial volume. Severely increased left atrial area. Mitral Valve Mitral valve thickened. Moderate mitral annular calcification. Moderate-to- severe mitral regurgitation. Centrally directed mitral regurgitation jet. Aortic Valve Trileaflet aortic valve. No aortic stenosis. Trace aortic regurgitation. Tricuspid Valve Structurally normal tricuspid valve. Mild tricuspid regurgitation. Pulmonic Valve Structurally normal pulmonic valve. Mild pulmonic regurgitation. Pericardium No pericardial effusion. Aorta Normal size aortic root and proximal ascending aorta. CONCLUSIONS LVH with preserved systolic function Moderate to severe mitral regurgitation, central jet Previewed by: Dr. Kenny Madrid MD (Electronically Signed) Final Date: 23 February 2023 13:52
== END | disposition home or self-care (01) ==
LOC: RADECHMAIN 11:04
PROVIDERS: ATTEND Family Medicine
DX: I34.0 Nonrheumatic mitral (valve) insufficiency (principal)
CPT/HCPCS: 93306

== ENCOUNTER 2023-04-28 10:26 | Inpatient (IN) | payer MEDICARE ==
[2023-04-28 11:09] LABS: Basophils # (A) 0.1 k/uL (0-0.2); Basophils % (A) 1 %; Eosinophils # (A) 0.2 k/uL (0-0.7); Eosinophils % (A) 2 %; HCT 47.3 % (34.0-46.0); HGB 15.5 gm/dL (11.4-16.0); Lymphocytes # (A) 1.2 k/uL (1.0-4.8); Lymphocytes % (A) 13 %; MCH 30.9 pg (25.0-35.0); MCHC 32.8 g/dL (31.0-37.0); MCV 94.1 fL (80.0-100.0); Mean Platelet Volume 10.1; Monocytes # (A) 0.6 k/uL (0-1.0); Monocytes % (A) 7 %; Neutrophils # (A) 6.5 k/uL (1.3-7.7); Neutrophils % (A) 74 %; Platelet Count 352 k/uL (150-450); RBC 5.02 m/uL (3.80-5.40); WBC 8.7 k/uL (3.8-10.6)
[2023-04-28 11:23] LABS: ALT 20 U/L (4-34); AST 26 U/L (14-36); African American GFR (CKD) 69 (>60 ml/min/1.73 sqM); Albumin 3.7 g/dL (3.5-5.0); Alkaline Phosphatase 78 U/L (38-126); Anion Gap 12 mmol/L; Blood Urea Nitrogen 18 mg/dL (7-17); Calcium 9.5 mg/dL (8.4-10.2); Carbon Dioxide 27 mmol/L (22-30); Chloride 103 mmol/L (98-107); Glucose 147 mg/dL (74-99); Non-African American GFR(CKD) 60 (>60 ml/min/1.73 sqM); Potassium 4.6 mmol/L (3.5-5.1); Sodium 142 mmol/L (137-145); Total Bilirubin 0.6 mg/dL (0.2-1.3); Total Protein 6.7 g/dL (6.3-8.2)
[2023-04-28] MEDS ORDERED: HEPARIN SODIUM 1,000 UN/ML (10ML VL) IV ONE (11:24)
[2023-04-28] MEDS ORDERED: HEPARIN SODIUM 1,000 UN/ML (10ML VL) IV PRN (11:24)
[2023-04-28 11:27] LABS: Partial Thromboplastin Time 21.9 sec (22.0-30.0); Prothrombin Time 10.7 sec (10.0-12.5)
--- NOTE | 2023-04-28 11:30 | ED ---
General Adult HPI - General Chief complaint: Arrhythmia/Palpitations Stated complaint: Afib Time Seen by Provider: 04/28/23 10:38 Source: patient Mode of arrival: EMS Limitations: no limitations - History of Present Illness Initial comments: Dictation was produced using [employer] dictation software. please excuse any grammatical, word or spelling errors. Chief Complaint: 83-year-old female presents to the emergency department from urgent care for new onset A. fib History of Present Illness: Patient is an 83-year-old female history of breast cancer she recently drove back from [facility] by car. She underwent home develop significant coughing. She is told to go to urgent care by her . She went to an urgent care where she is found to have irregular heart rate. She has no history of A. fib. She has history of breast cancer. She states that her lower extremities bilaterally swollen. Denies any shortness of breath. Denies palpitations. The ROS documented in this emergency department record has been reviewed and confirmed by me. Those systems with pertinent positive or negative responses have been documented in the HPI. All other systems are other negative and/or noncontributory. - Related Data Home Medications Medication Instructions Recorded Confirmed Atorvastatin [Lipitor] 10 mg PO DAILY 09/01/18 09/03/22 Cholecalciferol (Vitamin D3) 2,000 unit PO DAILY 09/01/18 09/03/22 [Vitamin D3] Famotidine [Pepcid] 20 mg PO BID 09/01/18 09/03/22 Multivitamins, Thera [Multivitamin 1 tab PO DAILY 09/01/18 09/03/22 (formulary)] NIFEdipine XL [Procardia XL] 30 mg PO BID 09/01/18 08/28/22 atenoloL [Tenormin] 25 mg PO HS 09/01/18 08/28/22 ramipriL [Altace] 5 mg PO BID 09/01/18 08/28/22 DULoxetine HCL [Cymbalta] 90 mg PO DAILY 07/10/22 09/03/22 Previous Rx's Medication Instructions Recorded Aspirin [Adult Low Dose Aspirin EC] 81 mg PO DAILY #1 tablet. 09/12/18 traMADol HCl [Ultram] 50 mg PO Q6H PRN #10 tab 09/03/22 Allergies Allergy/AdvReac Type Severity Reaction Status Date / Time No Known Allergies Allergy Verified 04/28/23 10:33 Review of Systems ROS Statement: Those systems with pertinent positive or pertinent negative responses have been documented in the HPI. ROS Other: All systems not noted in ROS Statement are negative. Past Medical History Past Medical History: Cancer, GERD/Reflux, Hyperlipidemia, Hypertension Additional Past Medical History / Comment(s): HX OF SKIN CA. Type 2 DM, diet controlled, breast cancer History of Any Multi-Drug Resistant Organisms: None Reported Past Surgical History: Adenoidectomy, Appendectomy, Section, H ysterectomy, Joint Replacement Additional Past Surgical History / Comment(s): DUC CATARACTS. Right knee replacement 2018 Past Anesthesia/Blood Transfusion Reactions: No Reported Reaction Additional Past Anesthesia/Blood Transfusion Reaction / Comment(s): no blood tx hx Past Psychological History: Anxiety Smoking Status: Former smoker - Past Family History Son(s) Family Medical History: Cancer Additional Family Medical History / Comment(s): THROAT General Exam - General Exam Comments Initial Comments: PHYSICAL EXAM: General Impression: Alert and oriented x3, not in acute distress HEENT: Normocephalic atraumatic, extra-ocular movements intact, pupils equal and reactive to light bilaterally, mucous membranes moist. Cardiovascular: Irregular Chest: Able to complete full sentences, no retractions, no tachypnea Abdomen: abdomen soft, non-tender, non-distended, no organomegaly Musculoskeletal: Pulses present and equal in all extremities, no peripheral edema Motor: no focal deficits noted Neurological: CN II-XII grossly intact, no focal motor or sensory deficits noted Skin: Intact with no visualized rashes Psych: Normal affect and mood Limitations: no limitations Course Vital Signs 04/28/23 04/28/23 04/28/23 10:28 10:59 12:02 Temperature 98.1 F Pulse Rate 144 H 107 H Pulse Rate [ 115 H Facilities Assistant ] Respiratory 18 20 Rate Blood Pressure 166/115 136/89 O2 Sat by Pulse 94 L 94 L Oximetry EKG Findings - EKG Comments: EKG Findings:: My EKG interpretation: Ventricular rate 121, A. fib, QRS 124, QTC 3 date. no QTC prolongation, no ST or T-wave changes noted. Overall, this EKG shows no onset A. fib Medical Decision Making - Medical Decision Making Was pt. sent in by a medical professional or institution (, PA, MACHINE FEATHEREDGER AND REDUCER, urgent care, hospital, or jail...) When possible be specific @ -No Did you speak to anyone other than the patient for history (EMS, parent, family, police, friend...)? What history was obtained from this source @ -No Did you review nursing and triage notes (agree or disagree)? Why? @ -I reviewed and agree with nursing and triage notes Were old charts reviewed (outside hosp., previous admission, EMS record, old EKG, old radiological studies, urgent care reports/EKG's, jail records)? Report findings @ -No old charts were reviewed Differential Diagnosis (chest pain, altered mental status, abdominal pain women, abdominal pain men, vaginal bleeding, musculoskeletal, weakness, fever, dyspnea, syncope, headache, dizziness, GI bleed, back pain, seizure, CVA, palpatations, mental health)? @ - Differential Palpitations: Ventricular arrhythmias, atrial arrhythmias, myocardial infarction, anemia, thyrotoxicosis, electrolyte imbalance, hypokalemia, pulmonary embolism, pulmonary disease, drugs, alcohol, anxiety, stress.... This is not meant to be an all-inclusive list. EKG interpreted by me (3pts min.). @ -See above X-rays interpreted by me (1pt min.). @ -None done CT interpreted by me (1pt min.). @ -CT angiography of the chest shows no acute processes U/S interpreted by me (1pt. min.). @ -Lower extremity ultrasound shows no DVTs What testing was considered but not performed or refused? (CT, X-rays, U/S, labs)? Why? @ -None What meds were considered but not given or refused? Why? @ -None Did you discuss the management of the patient with other professionals (professionals i.e. JIM Schmid, MACHINE FEATHEREDGER AND REDUCER, lab, RT, psych nurse, social science instructor, auto damage appraiser, teacher, inspectors and regulatory officers, comp field case manager)? Give summary @ -Discussed with hospitalist for admission Was smoking cessation discussed for >3mins.? @ -No Was critical care preformed (if so, how long)? @ -Yes, 33 minutes Were there social determinants of health that impacted care today? How? (Homelessness, low income, unemployed, alcoholism, drug addiction, transportation, low edu. Level, literacy, decrease access to med. care, correction, rehab)? @ -No Was there de-escalation of care discussed even if they declined (Discuss DNR or withdrawal of care, Hospice)? DNR status @ -No What co-morbidities impacted this encounter? (DM, HTN, Smoking, COPD, CAD, Cancer, CVA, ARF, Chemo, Hep., AIDS, mental health diagnosis, sleep apnea, morbid obesity)? @ -None Was patient admitted / discharged? Hospital course, mention meds given and route, prescriptions, significant lab abnormalities, going to OR and other pertinent info. @ -83-year-old female presents emergency department for new onset A. fib. She was seen at the urgent care for chief complaint of cough. All signs shows mild tachycardia. Patient's heart rate improved with IV fluids however she still mildly tachycardic. Patient started Cardizem. Start heparin. No PE. Troponin is elevated at 0.089. No old labs for comparison. She has no symptoms suspicious for ACS. This likely secondary to RVR. Patient be admitted consultation cardiology. Undiagnosed new problem with uncertain prognosis? @ -No Drug Therapy requiring intensive monitoring for toxicity (Heparin, Nitro, In sulin, Cardizem)? @ -No Were any procedures done? @ -No Diagnosis/symptom? Acute, or Chronic, or Acute on Chronic? Uncomplicated (without systemic symptoms) or Complicated (systemic symptoms)? @ -New-onset A. fib RVR Side effects of treatment? @ -No Exacerbation, Progression, or Severe Exacerbation? @ -No Poses a threat to life or bodily function? How? (Chest pain, [place], [place], pneumyesonia, PE, COPD, DKA, ARF, appy, cholecystitis, CVA, Diverticulitis, Homicidal, Suicidal, threat to staff... and all critical care pts) @ yes] - Lab Data Result diagrams: 04/28/23 10:50 04/28/23 10:50 Lab Results 04/28/23 04/28/23 04/28/23 Range/Units 10:50 10:50 10:50 WBC 8.7 (3.8-10.6) k/uL RBC 5.02 (3.80-5.40) m/uL Hgb 15.5 (11.4-16.0) gm/dL Hct 47.3 H (34.0-46.0) % MCV 94.1 (80.0-100.0) fL MCH 30.9 (25.0-35.0) pg MCHC 32.8 (31.0-37.0) g/dL RDW 14.0 (11.5-15.5) % Plt Count 352 (150-450) k/uL MPV 10.1 Neutrophils % 74 % Lymphocytes % 13 % Monocytes % 7 % Eosinophils % 2 % Basophils % 1 % Neutrophils # 6.5 (1.3-7.7) k/uL Lymphocytes # 1.2 (1.0-4.8) k/uL Monocytes # 0.6 (0-1.0) k/uL Eosinophils # 0.2 (0-0.7) k/uL Basophils # 0.1 (0-0.2) k/uL PT 10.7 (10.0-12.5) sec INR 1.0 (<1.2) APTT 21.9 L (22.0-30.0) sec D-Dimer (<0.60) mg/L FEU Sodium 142 (137-145) mmol/L Potassium 4.6 (3.5-5.1) mmol/L Chloride 103 (98-107) mmol/L Carbon Dioxide 27 (22-30) mmol/L Anion Gap 12 mmol/L BUN 18 H (7-17) mg/dL Creatinine 0.89 (0.52-1.04) mg/dL Est GFR (CKD-EPI)AfAm 69 (>60 ml/min/1.73 sqM) Est GFR (CKD-EPI)NonAf 60 (>60 ml/min/1.73 sqM) Glucose 147 H (74-99) mg/dL Plasma Lactic Acid Oc (0.7-2.0) mmol/L Calcium 9.5 (8.4-10.2) mg/dL Magnesium 2.0 (1.6-2.3) mg/dL Total Bilirubin 0.6 (0.2-1.3) mg/dL AST 26 (14-36) U/L ALT 20 (4-34) U/L Alkaline Phosphatase 78 (38-126) U/L Troponin I (0.000-0.034) ng/mL NT-Pro-B Natriuret Pep 2870 pg/mL Total Protein 6.7 (6.3-8.2) g/dL Albumin 3.7 (3.5-5.0) g/dL 04/28/23 04/28/23 04/28/23 Range/Units 10:50 10:50 10:50 WBC (3.8-10.6) k/uL RBC (3.80-5.40) m/uL Hgb (11.4-16.0) gm/dL Hct (34.0-46.0) % MCV (80.0-100.0) fL MCH (25.0-35.0) pg MCHC (31.0-37.0) g/dL RDW (11.5-15.5) % Plt Count (150-450) k/uL MPV Neutrophils % % Lymphocytes % % Monocytes % % Eosinophils % % Basophils % % Neutrophils # (1.3-7.7) k/uL Lymphocytes # (1.0-4.8) k/uL Monocytes # (0-1.0) k/uL Eosinophils # (0-0.7) k/uL Basophils # (0-0.2) k/uL PT (10.0-12.5) sec INR (<1.2) APTT (22.0-30.0) sec D-Dimer 1.05 H (<0.60) mg/L FEU Sodium (137-145) mmol/L Potassium (3.5-5.1) mmol/L Chloride (98-107) mmol/L Carbon Dioxide (22-30) mmol/L Anion Gap mmol/L BUN (7-17) mg/dL Creatinine (0.52-1.04) mg/dL Est GFR (CKD-EPI)AfAm (>60 ml/min/1.73 sqM) Est GFR (CKD-EPI)NonAf (>60 ml/min/1.73 sqM) Glucose (74-99) mg/dL Plasma Lactic Acid Oc 1.7 (0.7-2.0) mmol/L Calcium (8.4-10.2) mg/dL Magnesium (1.6-2.3) mg/dL Total Bilirubin (0.2-1.3) mg/dL AST (14-36) U/L ALT (4-34) U/L Alkaline Phosphatase (38-126) U/L Troponin I 0.089 H* (0.000-0.034) ng/mL NT-Pro-B Natriuret Pep pg/mL Total Protein (6.3-8.2) g/dL Albumin (3.5-5.0) g/dL Disposition Clinical Impression: Atrial fibrillation with RVR Disposition: ADMITTED IP TO THIS HOSP Condition: Critical Referrals: Bennett Castillo MD [Primary Care Provider] - 1-2 days Decision Time: 12:30
[2023-04-28 11:32] LABS: NT-Pro-B-Type Natriuretic Pept 2870 pg/mL
[2023-04-28] MEDS: HEPARIN SOD,PORK IN 0.45% NACL 25,000 UNIT in 0.45% NACL 1 250ML.BAG IV SCH (12:00)
--- NOTE | 2023-04-28 12:30 | US ---
EXAMINATION TYPE: US venous doppler duplex LE BI DATE OF EXAM: 04/28/2023 12:10 PM COMPARISON: NONE CLINICAL INDICATION: Female, 83 years old with history of suspect LE dvt; Elevated DDimer. No rednes s or swelling. No pain. Recent car road trip. Not on blood thinners. SIDE PERFORMED: Bilateral TECHNIQUE: The lower extremity deep venous system is examined utilizing real time linear array sonog mike with graded compression, doppler sonography and color-flow sonography. VESSELS IMAGED: Common Femoral Vein Deep Femoral Vein Greater Saphenous Vein * Femoral Vein Popliteal Vein Small Saphenous Vein * Proximal Calf Veins (* superficial vessels) Right Leg: Negative for DVT Left Leg: Negative for DVT IMPRESSION: 1. Bilateral lower extremity ultrasound negative for deep venous thrombosis.
--- NOTE | 2023-04-28 12:40 | CT ---
EXAMINATION TYPE: CT angio chest DATE OF EXAM: 04/28/2023 COMPARISON: 03/30/2016 HISTORY: elevated d-dimer, cough, recent cross country travel CT DLP: 350 mGycm CONTRAST: CT chest with contrast and 3D reconstruction with MIP imaging is performed with IV Contrast, patient injected with 80 mL of Isovue 370. Contrast-enhanced CT of the chest was performed through the course of the pulmonary arteries with jacob g and mediastinal window settings submitted. 3D reconstruction with MIP imaging was also performed. PULMONARY ARTERIES: The pulmonary arteries and their major tributaries are patent. I do not see adolph dence for sizable filling defect to suggest pulmonary embolic process. LUNGS: The lungs are clear and free of infiltrate. No evidence for atelectasis. No pulmonary nodule or mass is detected. No pleural effusion. MEDIASTINUM: Stable 3 X 3 X 2 CM ANTERIOR MEDIASTINAL CALCIFIED MASS. Thoracic aorta is of normal caliber,however, evaluation is limited given timing of the contrast bolus . If there is concern for thoracic aortic pathology consider LOLITA. Correlate clinically . The heart is not enlarged. No evidence for mediastinal mass. No mediastinal lymph nodes greater than 1cm. Sma ll sliding-type hiatal hernia. HILAR STRUCTURES: No evidence for mass. No hilar lymph nodes greater than 1 cm. UPPER ABDOMEN: Noncalcified gallstones. IMPRESSION: 1. No evidence for Pulmonary embolism at this time.
[2023-04-28] MEDS ORDERED: NALOXONE 0.4 MG/ML 1 ML VIAL IV PRN (13:08)
[2023-04-28] MEDS: SODIUM CHLORIDE 0.9% 1,000 ML IV SCH (13:42)
[2023-04-28] MEDS: DILTIAZEM 125 MG in SODIUM CHLORIDE 0.9% 100 ML IV SCH (13:42)
--- NOTE | 2023-04-28 15:40 | P.HPIM ---
History of Present Illness H&P Date: 04/28/23 Patient is a 83-year-old female with history of hypertension, dyslipidemia, GERD, anxiety, breast cancer status post resection and radiation presenting with elevated heart rate. Patient is a resident of nearby community, but recently traveled by car from [place]. Yesterday while traveling she started to have excessive cough which is persistent. This morning she checked her vitals and went to the clinic and was noted to have elevated heart rate. She was subsequently sent over to emergency. Currently she denies any chest pain, palpitations, lightheadedness, nausea, vomiting, urinary complaints. Recently she did have some diarrhea. She denies any fevers, chills. Denies any smoking or alcohol use or illicit drug use. In the ED, temperature was 98.1, pulse 144, blood pressure 166/115, respiratory rate 18, saturating at 94% on room air. EKG showed atrial fibrillation with RVR. Chest CTA did not show any PE, stable 3 x 3 x 2 cm mediastinal mass. Lower extremity Dopplers were negative for DVT. WBC 8.7, hemoglobin 15.5, d- dimer 1.05, potassium 4.6, magnesium 2, troponin 0.089, proBNP 2800, glucose 147, creatinine 0.89. Patient being admitted for new onset A. fib with RVR. Cardiology consulted. Pertinent positives and negatives as discussed in HPI, a complete review of systems was performed and all other systems are negative. Patient seen and examined at bedside. Vital signs reviewed General: nontoxic, no distress, appears at stated age Derm: warm, dry Head: atraumatic, normocephalic, symmetric Eyes: EOMI, no lid lag, anicteric sclera, pupils equal round reactive to light ENT: Nose and ears atraumatic Neck: No thyromegaly, supple Mouth: no lip lesion, mucus membranes moist Cardiovascular: S1S2 reg, no murmur, no edema Lungs: clear to auscultation bilateral, no rhonchi, no rales, no wheeze, no accessory muscle use Abdominal: soft, nontender to palpation, no guarding, no appreciable organomegaly Ext: no gross muscle atrophy, muscle strength muscle strength 5 out of 5 in all 4 extremities, no contractures Neuro: CN II-XII grossly intact Psych: Alert, oriented, appropriate affect Assessment/Plan: New-onset atrial fibrillation with RVR NSTEMI, likely type II -Continue telemetry -Trend troponin -Restart home atenolol -On Cardizem IV at 5 mg per hour for -Also on heparin drip, monitor daily CBC and APTT -TSH pending -Echocardiogram ordered -Cardiology consulted Stable mediastinal mass -Found on CT, outpatient follow-up Hypertension, restart home atenolol 25 mg, Procardia 30 mg twice a day, ramipril 5 mg twice a day Dyslipidemia, restarted home atorvastatin 10 mg daily GERD, continue famotidine 20 mg twice a day History of breast cancer status post resection and radiation, continue letrozole 2.5 daily Anxiety, continue duloxetine 90 mg at night The patient is admitted with an anticipated greater than 2 midnight stay as inpatient status for evaluation of A. fib with RVR. Surrogate decision-maker: CODE STATUS: Full code DVT prophylaxis: Heparin Anticipated discharge date: Pending clinical course Anticipated discharge place: Pending clinical course A total of 65 minutes was spent on the care of this complex patient more than 50% of the time was spent in counseling and care coordination. Past Medical History Past Medical History: Cancer, GERD/Reflux, Hyperlipidemia, Hypertension Additional Past Medical History / Comment(s): HX OF SKIN CA. Type 2 DM, diet controlled, breast cancer History of Any Multi-Drug Resistant Organisms: None Reported Past Surgical History: Adenoidectomy, Appendectomy, Section, Hysterectomy, Joint Replacement Additional Past Surgical History / Comment(s): DUC CATARACTS. Right knee replacement 2018 Past Anesthesia/Blood Transfusion Reactions: No Reported Reaction Additional Past Anesthesia/Blood Transfusion Reaction / Comment(s): no blood tx hx Past Psychological History: Anxiety Smoking Status: Former smoker - Past Family History Son(s) Family Medical History: Cancer Additional Family Medical History / Comment(s): THROAT Medications and Allergies Home Medications Medication Instructions Recorded Confirmed Type Atorvastatin [Lipitor] 10 mg PO DAILY 09/01/18 04/28/23 History Famotidine [Pepcid] 20 mg PO BID 09/01/18 04/28/23 History Multivitamins, Thera [Multivitamin 1 tab PO DAILY 09/01/18 04/28/23 History (formulary)] NIFEdipine XL [Procardia XL] 30 mg PO BID 09/01/18 04/28/23 History atenoloL [Tenormin] 25 mg PO DAILY 09/01/18 04/28/23 History ramipriL [Altace] 5 mg PO BID 09/01/18 04/28/23 History Aspirin [Adult Low Dose Aspirin EC] 81 mg PO DAILY #1 tablet. 09/12/18 04/28/23 Rx DULoxetine HCL [Cymbalta] 60 mg PO HS 07/10/22 04/28/23 History DULoxetine HCL [Cymbalta] 30 mg PO HS 04/28/23 04/28/23 History Letrozole [Femara] 2.5 mg PO DAILY 04/28/23 04/28/23 History Vitamin D3(Unknown Dose) 1 tab PO DAILY 04/28/23 04/28/23 History Allergies Allergy/AdvReac Type Severity Reaction Status Date / Time No Known Allergies Allergy Verified 04/28/23 13:18 Physical Exam Vitals: Vital Signs Temp Pulse Pulse Resp BP Pulse Ox 04/28/23 14:30 92 22 156/86 04/28/23 14:26 95 23 156/86 04/28/23 12:02 107 H 20 136/89 94 L 04/28/23 11:30 120 H 04/28/23 10:59 115 H 04/28/23 10:28 98.1 F 144 H 18 166/115 94 L Intake and Output 04/28/23 04/28/23 04/28/23 06:59 14:59 22:59 Other: Weight 88.451 kg Results CBC & Chem 7: 04/28/23 10:50 04/28/23 10:50 Labs: Abnormal Lab Results - Last 24 Hours (Table) 04/28/23 04/28/23 04/28/23 Range/Units 10:50 10:50 10:50 Hct 47.3 H (34.0-46.0) % APTT 21.9 L (22.0-30.0) sec D-Dimer (<0.60) mg/L FEU BUN 18 H (7-17) mg/dL Glucose 147 H (74-99) mg/dL Troponin I (0.000-0.034) ng/mL 04/28/23 04/28/23 Range/Units 10:50 10:50 Hct (34.0-46.0) % APTT (22.0-30.0) sec D-Dimer 1.05 H (<0.60) mg/L FEU BUN (7-17) mg/dL Glucose (74-99) mg/dL Troponin I 0.089 H* (0.000-0.034) ng/mL
[2023-04-28 16:16] LABS: Glucose,Whole Blood 117 mg/dL (70-110)
[2023-04-28] MEDS: FAMOTIDINE 20 MG TAB PO SCH (19:41)
[2023-04-28] MEDS: NIFEdipine XL 30 MG TAB.ER.24 PO SCH (19:41)
[2023-04-28] MEDS: lisinopriL 20 MG TAB PO SCH (19:42)
[2023-04-28] MEDS ORDERED: DULoxetine HCL 30 MG CAPSULE.DR PO SCH (21:00)
[2023-04-28] MEDS ORDERED: DULoxetine HCL 60 MG CAPSULE.DR PO SCH (21:00)
[2023-04-29] MEDS: FAMOTIDINE 20 MG TAB PO SCH (08:39)
[2023-04-29] MEDS: NIFEdipine XL 30 MG TAB.ER.24 PO SCH (08:39)
[2023-04-29] MEDS: DILTIAZEM 125 MG in SODIUM CHLORIDE 0.9% 100 ML IV SCH (08:40)
[2023-04-29] MEDS: lisinopriL 20 MG TAB PO SCH (08:40)
[2023-04-29] MEDS: HEPARIN SOD,PORK IN 0.45% NACL 25,000 UNIT in 0.45% NACL 1 250ML.BAG IV SCH (08:41)
[2023-04-29 08:50] LABS: Basophils # (A) 0.1 k/uL (0-0.2); Basophils % (A) 1 %; Eosinophils # (A) 0.5 k/uL (0-0.7); Eosinophils % (A) 7 %; HCT 45.8 % (34.0-46.0); HGB 14.9 gm/dL (11.4-16.0); Lymphocytes # (A) 1.2 k/uL (1.0-4.8); Lymphocytes % (A) 19 %; MCH 30.6 pg (25.0-35.0); MCHC 32.5 g/dL (31.0-37.0); MCV 94.2 fL (80.0-100.0); Mean Platelet Volume 10.3; Monocytes # (A) 0.6 k/uL (0-1.0); Monocytes % (A) 9 %; Neutrophils # (A) 3.9 k/uL (1.3-7.7); Neutrophils % (A) 61 %; Platelet Count 355 k/uL (150-450); RBC 4.86 m/uL (3.80-5.40); RDW 13.6 % (11.5-15.5); WBC 6.4 k/uL (3.8-10.6)
[2023-04-29] MEDS ORDERED: MULTIVITAMINS, THERA 1 EACH TAB PO SCH (09:00)
[2023-04-29] MEDS ORDERED: atenoloL 25 MG TAB PO SCH (09:00)
[2023-04-29] MEDS ORDERED: LETROZOLE 2.5 MG TAB PO SCH (09:00)
[2023-04-29] MEDS ORDERED: ASPIRIN 81 MG PO SCH (09:00)
[2023-04-29] MEDS ORDERED: METOPROLOL TARTRATE 25 MG TAB PO SCH (09:00)
[2023-04-29] MEDS ORDERED: ATORVASTATIN 10 MG TAB PO SCH (09:00)
[2023-04-29 09:07] LABS: African American GFR (CKD) >90 (>60 ml/min/1.73 sqM); Anion Gap 10 mmol/L; Blood Urea Nitrogen 13 mg/dL (7-17); Calcium 8.9 mg/dL (8.4-10.2); Carbon Dioxide 25 mmol/L (22-30); Chloride 104 mmol/L (98-107); Glucose 132 mg/dL (74-99); Non-African American GFR(CKD) 82 (>60 ml/min/1.73 sqM); Potassium 3.9 mmol/L (3.5-5.1); Sodium 139 mmol/L (137-145)
[2023-04-29] MEDS: SODIUM CHLORIDE 0.9% 1,000 ML IV SCH (09:54)
[2023-04-29] MEDS ORDERED: APIXABAN 5 MG TAB PO SCH (10:30)
[2023-04-29 10:54] VITALS: RESP 18
--- NOTE | 2023-04-29 11:32 | P.CRDCN ---
History of Present Illness History of present illness: HISTORY OF PRESENT ILLNESS: This is a 83-year-old female with a past medical history significant for breast cancer with radiation, hypertension, and hyperlipidemia. 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 Florez this week. We have been asked to see the patient in consultation for Nati nieto with RVR. Patient examined at the bedside. She went to her PCP for laryngitis and she was found to be in afib with RVR. She was started on IV Heparin and Cardizem. She denies a previous history of atrial fibrillation. She was started on IV Cardizem and IV heparin. At the time of examination, she remains in a atrial fibrillation with controlled ventricular rates. She denies any chest pain or pressure. She denies any shortness of breath. * EKG reveals atrial fibrillation * Chest CT: Negative for pulmonary embolism * Venous Doppler: Negative for DVT bilaterally * Laboratory data: Troponin 0.089. 0.076. 0.070. ProBNP 2870. * Current home cardiac medications include ramipril 5 mg twice a day, atenolol 25 mg daily, nifedipine 30 mg twice a day, atorvastatin 10 mg daily, and aspirin 81 mg daily * Most recent echocardiogram obtained in February 2023 revealed ejection fraction 55-60% with moderate to severe mitral regurgitation, central jet. REVIEW OF SYSTEMS: At the time of my exam: CONSTITUTIONAL: Denies fever or chills. HEENT: Denies blurred vision, vision changes, or eye pain. Denies hemoptysis CARDIOVASCULAR: Denies chest pain. Denies orthopnea. Denies PND. Denies palpitations RESPIRATORY: Denies shortness of breath. GASTROINTESTINAL: Denies abdominal pain. Denies nausea or vomiting. HEMATOLOGIC: Denies bleeding disorders. GENITOURINARY: Denies any blood in urine. SKIN: Denies pruitis. Denies rash. PHYSICAL EXAM: VITAL SIGNS: Reviewed. GENERAL: Well-developed in no acute distress. HEENT: Head is normocephalic. Pupils are equal, round. Sclerae anicteric. Mucous membranes of the mouth are moist. Neck supple. No JVD or thyromegaly LUNGS: Respirations even and unlabored. Lungs essentially clear to auscultation bilaterally. HEART: Irregular rate and rhythm. S1 and S2 heard. Systolic murmur noted ABDOMEN: Soft. Nondistended. Nontender. EXTREMITIES: Normal range of motion. No clubbing or cyanosis. Peripheral pulses intact. No lower extremity edema NEUROLOGIC: Awake and alert. Oriented x 3. ASSESSMENT: New-onset atrial fibrillation with RVR, currently rate controlled Hypertension Hyperlipidemia Moderate to severe mitral regurgitation PLAN: No need to repeat echocardiogram as this was performed in February 2023 Resume home cardiac medications Resume atenolol. Increase dose to 50 mg daily Begin Eliquis 5 mg twice a day Anticipate discharge home this afternoon if patient is feeling well and remains stable Further recommendations pending patient's course Nurse practitioner note has been reviewed by physician. Signing provider agrees with the documented findings, assessment, and plan of care. Past Medical History Past Medical History: Cancer, Diabetes Mellitus, GERD/Reflux, Hyperlipidemia, Hypertension Additional Past Medical History / Comment(s): HX OF SKIN CA. Type 2 DM, diet controlled, breast cancer History of Any Multi-Drug Resistant Organisms: None Reported Past Surgical History: Adenoidectomy, Appendectomy, Section, Hysterectomy, Joint Replacement Additional Past Surgical History / Comment(s): DUC CATARACTS. Right knee replacement 2018 Past Anesthesia/Blood Transfusion Reactions: No Reported Reaction Additional Past Anesthesia/Blood Transfusion Reaction / Comment(s): no blood tx hx Past Psychological History: Anxiety Smoking Status: Former smoker Past Alcohol Use History: None Reported Additional Past Alcohol Use History / Comment(s): SMOKED FROM AGE 13(1953) UNTIL AGE 25(1964) Past Drug Use History: None Reported - Past Family History Son(s) Family Medical History: Cancer Additional Family Medical History / Comment(s): THROAT Mother Family Medical History: AFIB Additional Family Medical History / Comment(s): Heart disease, passed at 78 related to a-fib per patient Father Additional Family Medical History / Comment(s): Heart disease, passed at 37 years old Medications and Allergies Home Medications Medication Instructions Recorded Confirmed Type Atorvastatin [Lipitor] 10 mg PO DAILY 09/01/18 04/28/23 History Famotidine [Pepcid] 20 mg PO BID 09/01/18 04/28/23 History Multivitamins, Thera [Multivitamin 1 tab PO DAILY 09/01/18 04/28/23 History (formulary)] NIFEdipine XL [Procardia XL] 30 mg PO BID 09/01/18 04/28/23 History atenoloL [Tenormin] 25 mg PO DAILY 09/01/18 04/28/23 History ramipriL [Altace] 5 mg PO BID 09/01/18 04/28/23 History Aspirin [Adult Low Dose Aspirin EC] 81 mg PO DAILY #1 tablet. 09/12/18 04/28/23 Rx DULoxetine HCL [Cymbalta] 60 mg PO HS 07/10/22 04/28/23 History DULoxetine HCL [Cymbalta] 30 mg PO HS 04/28/23 04/28/23 History Letrozole [Femara] 2.5 mg PO DAILY 04/28/23 04/28/23 History Vitamin D3(Unknown Dose) 1 tab PO DAILY 04/28/23 04/28/23 History Allergies Allergy/AdvReac Type Severity Reaction Status Date / Time No Known Allergies Allergy Verified 04/28/23 13:18 Physical Exam Vitals: Vital Signs Temp Pulse Pulse Resp BP BP Pulse Ox 04/29/23 04:00 79 17 128/76 93 L 04/29/23 00:00 64 18 135/77 93 L 04/28/23 20:00 98.7 F 83 17 139/73 93 L 04/28/23 18:06 101 H 18 137/67 92 L 04/28/23 16:01 92 20 123/91 94 L 04/28/23 15:30 93 27 H 134/94 04/28/23 15:00 92 23 145/94 04/28/23 14:30 92 22 156/86 04/28/23 14:26 95 23 156/86 04/28/23 12:02 107 H 20 136/89 94 L 04/28/23 11:30 120 H 04/28/23 10:59 115 H 04/28/23 10:28 98.1 F 144 H 18 166/115 94 L Intake and Output 04/28/23 04/29/23 04/29/23 22:59 06:59 14:59 Intake Total 168 106.117 Balance 168 106.117 Intake: Intake, IV Titration 58 106.117 Amount Heparin Sod,Pork in 0.45% 58 106.117 NaCl 25,000 unit In 0.45 % NaCl 1 250ml.bag @ 11. 306 UNITS/KG/HR 10 mls/hr IV .Q24H [facility] Rx#: [id number] Oral 110 Other: # Voids 1 2 Weight 88.451 kg Results 04/29/23 07:40 04/29/23 07:40 Cardiac Enzymes 04/28/23 04/28/23 04/28/23 Range/Units 10:50 10:50 17:20 AST 26 (14-36) U/L Troponin I 0.089 H* 0.076 H* (0.000-0.034) ng/mL 04/28/23 Range/Units 23:54 AST (14-36) U/L Troponin I 0.070 H* (0.000-0.034) ng/mL Coagulation 04/28/23 04/28/23 04/28/23 Range/Units 10:50 17:20 23:54 PT 10.7 (10.0-12.5) sec APTT 21.9 L 40.3 H 39.5 H (22.0-30.0) sec CBC 04/28/23 Range/Units 10:50 WBC 8.7 (3.8-10.6) k/uL RBC 5.02 (3.80-5.40) m/uL Hgb 15.5 (11.4-16.0) gm/dL Hct 47.3 H (34.0-46.0) % Plt Count 352 (150-450) k/uL Comprehensive Metabolic Panel 04/28/23 Range/Units 10:50 Sodium 142 (137-145) mmol/L Potassium 4.6 (3.5-5.1) mmol/L Chloride 103 (98-107) mmol/L Carbon Dioxide 27 (22-30) mmol/L BUN 18 H (7-17) mg/dL Creatinine 0.89 (0.52-1.04) mg/dL Glucose 147 H (74-99) mg/dL Calcium 9.5 (8.4-10.2) mg/dL AST 26 (14-36) U/L ALT 20 (4-34) U/L Alkaline Phosphatase 78 (38-126) U/L Total Protein 6.7 (6.3-8.2) g/dL Albumin 3.7 (3.5-5.0) g/dL Current Medications Generic Name Dose Route Start Last Admin Trade Name Freq PRN Reason Stop Dose Admin Aspirin 81 mg 04/29/23 09:00 Aspirin 81 Mg PO DAILY [facility] Atenolol 25 mg 04/29/23 09:00 Atenolol 25 Mg Tab PO DAILY [facility] Atorvastatin Calcium 10 mg 04/29/23 09:00 Atorvastatin 10 Mg Tab PO DAILY [facility] Duloxetine HCl 30 mg 04/28/23 21:00 04/28/23 19:41 Duloxetine Hcl 30 Mg Capsule. PO 30 mg HS [facility] Administration Duloxetine HCl 60 mg 04/28/23 21:00 04/28/23 19:41 Duloxetine Hcl 60 Mg Capsule. PO 60 mg HS [facility] Administration Famotidine 20 mg 04/28/23 21:00 04/28/23 19:41 Famotidine 20 Mg Tab PO 20 mg BID [facility] Administration Heparin Sodium (Porcine) 0 unit 04/28/23 11:24 04/29/23 02:49 Heparin Sodium 1,000 Un/Ml (10ml Vl) IV 2,200 unit PER PROTOCOL PRN Administration Low PTT Protocol Heparin Sodium/Sodium Chloride 250 mls @ 10 mls/hr 04/28/23 11:30 04/29/23 02:49 25,000 unit/ Sodium Chloride IV 15.306 units/kg/hr .Q24H [facility] 13.538 mls/hr Titration Protocol 11.306 UNITS/KG/HR Diltiazem HCl 125 mg/ Sodium 125 mls @ 5 mls/hr 04/28/23 12:45 04/28/23 13:42 Chloride IV 5 mg/hr .Q24H [facility] 5 mls/hr Administration 5 MG/HR Sodium Chloride 1,000 mls @ 20 mls/hr 04/28/23 13:15 04/28/23 13:42 Saline 0.9% IV 20 mls/hr .Q24H [facility] Administration Letrozole 2.5 mg 04/29/23 09:00 Letrozole 2.5 Mg Tab PO DAILY [facility] Lisinopril 20 mg 04/28/23 21:00 04/28/23 19:42 Lisinopril 20 Mg Tab PO 20 mg BID [facility] Administration Multivitamins 1 each 04/29/23 09:00 Multivitamins, Thera 1 Each Tab PO DAILY [facility] Naloxone HCl 0.2 mg 04/28/23 13:08 Naloxone 0.4 Mg/Ml 1 Ml Vial IV Q2M PRN Opioid Reversal Nifedipine 30 mg 04/28/23 21:00 04/28/23 19:41 Nifedipine Xl 30 Mg Tab.Er.24 PO 30 mg BID [facility] Administration Intake and Output 04/28/23 04/29/23 04/29/23 22:59 06:59 14:59 Intake Total 168 106.117 Balance 168 106.117 Intake: Intake, IV Titration 58 106.117 Amount Heparin Sod,Pork in 0.45% 58 106.117 NaCl 25,000 unit In 0.45 % NaCl 1 250ml.bag @ 11. 306 UNITS/KG/HR 10 mls/hr IV .Q24H [facility] Rx#: [id number] Oral 110 Other: # Voids 1 2 Weight 88.451 kg 04/28/23 10:50 04/28/23 10:50
--- NOTE | 2023-04-29 14:48 | P.DS ---
Providers Date of admission: 04/28/23 13:10 Expected date of discharge: 04/29/23 Attending physician: Adria Gill MD Consults: 04/28/23 13:08 Consult Physician Routine Consulting Provider: Ildefonso Daniel Consult Reason/Comments: afib rvr Do you want consulting provider notified?: Yes Primary care physician: Bennett Castillo Hospital Course: Discharge Diagnosis: New-onset atrial fibrillation with RVR NSTEMI, likely type II Stable mediastinal mass Hypertension Dyslipidemia GERD History of breast cancer status post resection and radiation Anxiety Hospital Course: 83-year-old female with history of hypertension, dyslipidemia, GERD, anxiety, breast cancer status post resection and radiation presenting with elevated heart rate. In the ED, temperature was 98.1, pulse 144, blood pressure 166/115, respiratory rate 18, saturating at 94% on room air. EKG showed atrial fibrillation with RVR. Chest CTA did not show any PE, stable 3 x 3 x 2 cm mediastinal mass. Lower extremity Dopplers were negative for DVT. WBC 8.7, hemoglobin 15.5, d-dimer 1.05, potassium 4.6, magnesium 2, troponin 0.089, proBNP 2800, glucose 147, creatinine 0.89. Patient being admitted for new onset A. fib with RVR. Cardiology consulted. Echocardiogram recently done in the office in February 2023 which showed LVEF 55-60% with moderate to severe mitral regurgitation. Atenolol increased, Eliquis was added. She will follow-up with cardiology outpatient. Patient seen and examined at bedside. Vital signs reviewed and stable. General: nontoxic, no distress, appears at stated age Derm: warm, dry Head: atraumatic, normocephalic, symmetric Eyes: EOMI, no lid lag, anicteric sclera Mouth: no lip lesion, mucus membranes moist Cardiovascular: S1S2 irregular, no murmur Lungs: CTA bilateral, no rhonchi, no rales , no accessory muscle use Abdominal: soft, nontender to palpation, no guarding, no appreciable organomegaly Ext: no gross muscle atrophy, no edema, no contractures Neuro: CN II-XI grossly intact, no focal neuro deficits Psych: Alert, oriented, appropriate affect A total of 33 minutes of time were spent preparing this complex discharge summary. Patient was discharged on 04/29/23 at 1447. Patient Condition at Discharge: Stable Plan - Discharge Summary Discharge Rx Participant: No New Discharge Prescriptions: New atenoloL [Tenormin] 50 mg PO DAILY #60 tab Apixaban [Eliquis] 5 mg PO BID #90 tab Continue Multivitamins, Thera [Multivitamin (formulary)] 1 tab PO DAILY Famotidine [Pepcid] 20 mg PO BID ramipriL [Altace] 5 mg PO BID Atorvastatin [Lipitor] 10 mg PO DAILY NIFEdipine XL [Procardia XL] 30 mg PO BID Aspirin [Adult Low Dose Aspirin EC] 81 mg PO DAILY #1 tablet. DULoxetine HCL [Cymbalta] 30 mg PO HS Letrozole [Femara] 2.5 mg PO DAILY DULoxetine HCL [Cymbalta] 60 mg PO HS Vitamin D3(Unknown Dose) 1 tab PO DAILY Discontinued atenoloL [Tenormin] 25 mg PO DAILY Discharge Medication List Atorvastatin [Lipitor] 10 mg PO DAILY 09/01/18 [History] Famotidine [Pepcid] 20 mg PO BID 09/01/18 [History] Multivitamins, Thera [Multivitamin (formulary)] 1 tab PO DAILY 09/01/18 [History] NIFEdipine XL [Procardia XL] 30 mg PO BID 09/01/18 [History] ramipriL [Altace] 5 mg PO BID 09/01/18 [History] Aspirin [Adult Low Dose Aspirin EC] 81 mg PO DAILY #1 tablet. 09/12/18 [Rx] DULoxetine HCL [Cymbalta] 60 mg PO HS 07/10/22 [History] DULoxetine HCL [Cymbalta] 30 mg PO HS 04/28/23 [History] Letrozole [Femara] 2.5 mg PO DAILY 04/28/23 [History] Vitamin D3(Unknown Dose) 1 tab PO DAILY 04/28/23 [History] Apixaban [Eliquis] 5 mg PO BID #90 tab 04/29/23 [Rx] atenoloL [Tenormin] 50 mg PO DAILY #60 tab 04/29/23 [Rx] Follow up Appointment(s)/Referral(s): Adin Danielson DO [STAFF PHYSICIAN] - 1 Week Bennett Castillo MD [Primary Care Provider] - 1-2 days Patient Instructions/Handouts: A-fib (Atrial Fibrillation) (DC) Activity/Diet/Wound Care/Special Instructions: Please see cardiology and PCP. Discharge Disposition: HOME SELF-CARE
[2023-04-29 16:00] VITALS: BP 118/75; PULSE 90; TEMP 98.2
[2023-04-30] MEDS ORDERED: atenoloL 50 MG TAB PO SCH (09:00)
== END 2023-04-29 16:11 | disposition home or self-care (01) | DRG 282 ==
LOC: EC 10:26 → 3SCARD 13:10
PROVIDERS: ADMIT Student in an Organized Health Care Education/Training Program; ATTEND Student in an Organized Health Care Education/Training Program
DX: I48.91 Unspecified atrial fibrillation (principal); I21.A1 Myocardial infarction type 2; Z87.891 Personal history of nicotine dependence; E78.5 Hyperlipidemia, unspecified; F41.9 Anxiety disorder, unspecified; I10 Essential (primary) hypertension; I34.0 Nonrheumatic mitral (valve) insufficiency; R22.2 Localized swelling, mass and lump, trunk; J04.0 Acute laryngitis; K21.9 Gastro-esophageal reflux disease without esophagitis; Z79.811 Long term (current) use of aromatase inhibitors; Z79.82 Long term (current) use of aspirin; Z79.899 Other long term (current) drug therapy; Z85.3 Personal history of malignant neoplasm of breast; Z85.828 Personal history of other malignant neoplasm of skin; Z96.651 Presence of right artificial knee joint; Z90.10 Acquired absence of unspecified breast and nipple; Z92.3 Personal history of irradiation
CPT/HCPCS: 36415; 71275; 80048; 80053; 83605; 83735; 83880; 84443; 84484; 85025; 85379; 85610; 85730; 93005; 93970; 96365; 96366; 96368; 99291

== ENCOUNTER → 2023-07-12 | Outpatient (CLI) | payer MEDICARE ==
--- NOTE | 2023-07-12 13:27 | MM ---
Reason for Exam: Review of outside study. Last screening mammogram was performed 12 month(s) ago. Patient History: Menarche at age 13. First Full-Term at age 30. Late child-bearing (after 30). Left ovary removed at age 40. Right ovary removed at age 40. Hysterectomy at age 40. Postmenopausal. Patient has history of breast feeding. Breast cancer, left, age 82. Estrogen for 20 years from age 40 until age 60. 09/03/2022, Lumpectomy on the Left side. 09/03/2022, Malignant US breast localization LT on the left side. 07/20/2022, Malignant US biopsy breast VAD LT on the left side. 2022, Radiation Therapy on the left side. Tissue Density: There are scattered fibroglandular densities. Findings: Analyzed By CAD. Pattern appears stable. Multiple surgical clips are within the left breast. Scar marker is visualized over the left pelvis. No suspicious groups of microcalcifications, spiculated or lobular masses, architectural distortion or other secondary signs of malignancy are mammographically apparent. Overall Assessment: Benign, BI-RAD 2 Management: Diagnostic Mammogram of both breasts in 1 year. A negative mammogram report should not preclude additional follow up of suspicious palpable abnormalities. Patient should continue monthly self breast exam. A clinical breast exam by your physician is recommended on an annual basis and results should be correlated with mammographic findings. Electronically signed and approved by: Beto Albert D.O. Radiologis
== END | disposition home or self-care (01) ==
LOC: RADMAMWWP 12:54
PROVIDERS: ATTEND Surgery
DX: R92.323 Mammographic fibroglandular density, bilateral breasts (principal); Z78.0 Asymptomatic menopausal state; Z85.3 Personal history of malignant neoplasm of breast
CPT/HCPCS: 77066; G0279; 77062

== ENCOUNTER 2023-07-16 09:53 | Observation (INO) | payer MEDICARE ==
[2023-07-16 10:33] LABS: Basophils % (A) 0 %; Eosinophils # (A) 0.1 k/uL (0-0.7); Eosinophils % (A) 1 %; HCT 46.4 % (34.0-46.0); HGB 15.1 gm/dL (11.4-16.0); Lymphocytes % (A) 5 %; MCH 30.9 pg (25.0-35.0); MCHC 32.5 g/dL (31.0-37.0); Mean Platelet Volume 10.8; Monocytes # (A) 1.4 k/uL (0-1.0); Monocytes % (A) 8 %; Neutrophils # (A) 15.6 k/uL (1.3-7.7); Neutrophils % (A) 85 %; Platelet Count 318 k/uL (150-450); RBC 4.89 m/uL (3.80-5.40); RDW 14.3 % (11.5-15.5); WBC 18.3 k/uL (3.8-10.6)
--- NOTE | 2023-07-16 10:35 | ED ---
General Adult HPI - General Source: patient, RN notes reviewed Mode of arrival: ambulatory Limitations: no limitations <Marko Garcia - Last Filed: 07/16/23 10:34> - General Source: patient, RN notes reviewed Mode of arrival: ambulatory Limitations: no limitations <Aldair Handy - Last Filed: 07/16/23 14:58> - General Chief complaint: Shortness of Breath Stated complaint: sob Time Seen by Provider: 07/16/23 10:01 - History of Present Illness Initial comments: 83-year-old female presents emergency department with chief complaint of cough. Patient states she had COVID 3 weeks ago still having cough was seen urgent care sent here secondary to A-fib RVR she states A-fib is relatively new to patient she was diagnosed in April. She was recently started on blood thinners and new blood pressure medication. She states she does not have any current palpitations, chest pain states her cough is essentially nonproductive denies any abdominal pain (Marko Garcia) Patient is a pleasant 83-year-old female present emergency department with cough and shortness of breath. Shortness of breath is generally only with exertion. Dyspnea improves with rest. Patient has had nonproductive cough. Symptoms have been present for to 5 days. Patient did have COVID-19 infection a few weeks ago however patient has been symptom-free for the in between time. Patient has a newer diagnosis of atrial fibrillation (Aldair Handy) - Related Data Home Medications Medication Instructions Recorded Confirmed Atorvastatin [Lipitor] 10 mg PO DAILY 09/01/18 04/28/23 Famotidine [Pepcid] 20 mg PO BID 09/01/18 04/28/23 Multivitamins, Thera [Multivitamin 1 tab PO DAILY 09/01/18 04/28/23 (formulary)] NIFEdipine XL [Procardia XL] 30 mg PO BID 09/01/18 04/28/23 ramipriL [Altace] 5 mg PO BID 09/01/18 04/28/23 DULoxetine HCL [Cymbalta] 60 mg PO HS 07/10/22 04/28/23 DULoxetine HCL [Cymbalta] 30 mg PO HS 04/28/23 04/28/23 Letrozole [Femara] 2.5 mg PO DAILY 04/28/23 04/28/23 Vitamin D3(Unknown Dose) 1 tab PO DAILY 04/28/23 04/28/23 Previous Rx's Medication Instructions Recorded Aspirin [Adult Low Dose Aspirin EC] 81 mg PO DAILY #1 tablet. 09/12/18 Apixaban [Eliquis] 5 mg PO BID #90 tab 04/29/23 atenoloL [Tenormin] 50 mg PO DAILY #60 tab 04/29/23 Allergies Allergy/AdvReac Type Severity Reaction Status Date / Time No Known Allergies Allergy Verified 07/16/23 10:02 Review of Systems ROS Other: All systems not noted in ROS Statement are negative. <Marko Garcia - Last Filed: 07/16/23 10:34> ROS Other: All systems not noted in ROS Statement are negative. Constitutional: Denies: fever Eyes: Denies: eye pain ENT: Denies: ear pain Respiratory: Reports: as per HPI, cough, dyspnea Cardiovascular: Reports: dyspnea on exertion. Denies: edema Endocrine: Denies: fatigue Gastrointestinal: Denies: abdominal pain <Aldair Handy - Last Filed: 07/16/23 14:58> ROS Statement: Those systems with pertinent positive or pertinent negative responses have been documented in the HPI. Past Medical History Past Medical History: Cancer, Diabetes Mellitus, GERD/Reflux, Hyperlipidemia, Hypertension Additional Past Medical History / Comment(s): HX OF SKIN CA. Type 2 DM, diet controlled, breast cancer History of Any Multi-Drug Resistant Organisms: None Reported Past Surgical History: Adenoidectomy, Appendectomy, Section, Hys terectomy, Joint Replacement Additional Past Surgical History / Comment(s): DUC CATARACTS. Right knee replacement 2018 Past Anesthesia/Blood Transfusion Reactions: No Reported Reaction Additional Past Anesthesia/Blood Transfusion Reaction / Comment(s): no blood tx hx Past Psychological History: Anxiety Smoking Status: Former smoker Past Alcohol Use History: None Reported Past Drug Use History: None Reported - Past Family History Son(s) Family Medical History: Cancer Additional Family Medical History / Comment(s): THROAT Mother Family Medical History: AFIB Additional Family Medical History / Comment(s): Heart disease, passed at 78 related to a-fib per patient Father Additional Family Medical History / Comment(s): Heart disease, passed at 37 years old <Marko Garcia - Last Filed: 07/16/23 10:34> Past Medical History: Atrial Fibrillation <Aldair Handy - Last Filed: 07/16/23 14:58> General Exam Limitations: no limitations <Marko Garcia - Last Filed: 07/16/23 10:34> Limitations: no limitations General appearance: alert, in no apparent distress Head exam: Present: normocephalic Eye exam: Present: normal appearance Neck exam: Present: normal inspection Respiratory exam: Present: decreased breath sounds Cardiovascular Exam: Present: tachycardia, irregular rhythm GI/Abdominal exam: Present: soft. Absent: tenderness Extremities exam: Present: normal inspection. Absent: pedal edema, calf tenderness Neurological exam: Present: alert Psychiatric exam: Present: normal affect, normal mood Skin exam: Present: normal color <OleAldair - Last Filed: 07/16/23 14:58> - General Exam Comments Initial Comments: Visual Physical Exam Vital signs reviewed General: Well-appearing, nontoxic, no acute distress. Head: Normocephalic, atraumatic Eyes: PERRLA, EOMI ENT: Airway patent Chest: Nonlabored breathing Skin: No visual rash, normal skin tone Neuro: Alert and oriented 3 Musculoskeletal: No gross abnormalities (Marko Garcia) Course Vital Signs 07/16/23 10:00 Temperature 98.8 F Pulse Rate 115 H Respiratory 24 Rate Blood Pressure 199/98 O2 Sat by Pulse 94 L Oximetry EKG Findings - EKG Results: EKG: interpreted by ERMD (Left axis. Septal Q waves.), normal ST/T EKG shows: tachycardia, atrial fibrillation <Aldair Handy - Last Filed: 07/16/23 14:58> Medical Decision Making - Lab Data Result diagrams: 07/16/23 10:20 <Marko Garcia - Last Filed: 07/16/23 10:34> - Lab Data Result diagrams: 07/16/23 10:20 07/16/23 10:20 <Aldair Handy - Last Filed: 07/16/23 14:58> - Medical Decision Making I completed the quick note portion of this chart signed Marko Garcia PA-C (Marko Garcia) Was pt. sent in by a medical professional or institution ([facility], [facility], urgent care, hospital, or fdc...) When possible be specific @ -No Did you speak to anyone other than the patient for history (EMS, parent, family, police, friend...)? What history was obtained from this source @ -Family is present and helps confirm history including recent diagnosis of atrial fibrillation Did you review nursing and triage notes (agree or disagree)? Why? @ -I reviewed and agree with nursing and triage notes Were old charts reviewed (outside hosp., previous admission, EMS record, old EKG, old radiological studies, urgent care reports/EKG's, fdc records)? Report findings @ -Past medical history reviewed. Differential Diagnosis (chest pain, altered mental status, abdominal pain women, abdominal pain men, vaginal bleeding, weakness, fever, dyspnea, syncope, headache, dizziness, GI bleed, back pain, seizure, CVA, palpatations, mental health, musculoskeletal)? @ -Differential Dyspnea: Coronary syndrome, arrhythmia, tamponade, asthma, COPD, pulmonary embolism, pneumonia, pneumothorax, pulmonary effusion, anaphylaxis, diabetic ketoacidosis, flailed chest, pulmonary contusion, diaphragmatic rupture, anemia, neuromuscular, this is not meant to be an all-inclusive list. EKG interpreted by me (3pts min.). @ -As above X-rays interpreted by me (1pt min.). @ -Chest x-ray shows some CHF CT interpreted by me (1pt min.). @ -None done U/S interpreted by me (1pt. min.). @ -None done What testing was considered but not performed or refused? (CT, X-rays, U/S, labs)? Why? @ -None What meds were considered but not given or refused? Why? @ -None Did you discuss the management of the patient with other professionals (professionals i.e. , PA, [facility] [employer], lab, RT, psych nurse, director of social work, hack saw operator, teacher, correctional officer, assistant case manager)? Give summary @ -Case was discussed with Dr. Marlow, who will admit covering Dr. Castillo Was smoking cessation discussed for >3mins.? @ -No Was critical care preformed (if so, how long)? @ -No Were there social determinants of health that impacted care today? How? (Homelessness, low income, unemployed, alcoholism, drug addiction, transportation, low edu. Level, literacy, decrease access to med. care, [facility], rehab)? @ -No Was there de-escalation of care discussed even if they declined (Discuss DNR or withdrawal of care, Hospice)? DNR status @ -No What co-morbidities impacted this encounter? (DM, HTN, Smoking, COPD, CAD, Cancer, CVA, ARF, Chemo, Hep., AIDS, mental health diagnosis, sleep apnea, morbid obesity)? @ -None Was patient admitted / discharged? Hospital course, mention meds given and route, prescriptions, significant lab abnormalities, going to OR and other pertinent info. @ -Patient reevaluated and updated. Patient will be admitted. Admission orders written. Undiagnosed new problem with uncertain prognosis? @ -No Drug Therapy requiring intensive monitoring for toxicity (Heparin, Nitro, Insulin, Cardizem)? @ -No Were any procedures done? @ -No Diagnosis/symptom? @ -CHF Acute, or Chronic, or Acute on Chronic? @ -Acute Uncomplicated (without systemic symptoms) or Complicated (systemic symptoms)? @ -Default Side effects of treatment? @ -No Exacerbation, Progression, or Severe Exacerbation? @ -No Poses a threat to life or bodily function? How? (Chest pain, USA, CT, pneumonia, PE, COPD, DKA, ARF, appy, cholecystitis, CVA, Diverticulitis, Homicidal, Suicidal, threat to staff... and all critical care pts) @ -No (Aldair Handy) - Lab Data Lab Results 07/16/23 07/16/23 07/16/23 Range/Units 10:20 10:20 10:20 WBC 18.3 H (3.8-10.6) k/uL RBC 4.89 (3.80-5.40) m/uL Hgb 15.1 (11.4-16.0) gm/dL Hct 46.4 H (34.0-46.0) % MCV 95.0 (80.0-100.0) fL MCH 30.9 (25.0-35.0) pg MCHC 32.5 (31.0-37.0) g/dL RDW 14.3 (11.5-15.5) % Plt Count 318 (150-450) k/uL MPV 10.8 Neutrophils % 85 % Lymphocytes % 5 % Monocytes % 8 % Eosinophils % 1 % Basophils % 0 % Neutrophils # 15.6 H (1.3-7.7) k/uL Lymphocytes # 1.0 (1.0-4.8) k/uL Monocytes # 1.4 H (0-1.0) k/uL Eosinophils # 0.1 (0-0.7) k/uL Basophils # 0.0 (0-0.2) k/uL PT 11.4 (10.0-12.5) sec INR 1.1 (<1.2) APTT 24.5 (22.0-30.0) sec Sodium 142 (137-145) mmol/L Potassium 4.1 (3.5-5.1) mmol/L Chloride 105 (98-107) mmol/L Carbon Dioxide 27 (22-30) mmol/L Anion Gap 10 mmol/L BUN 24 H (7-17) mg/dL Creatinine 0.75 (0.52-1.04) mg/dL Est GFR (CKD-EPI)AfAm 85 (>60 ml/min/1.73 sqM) Est GFR (CKD-EPI)NonAf 74 (>60 ml/min/1.73 sqM) Glucose 149 H (74-99) mg/dL Calcium 9.3 (8.4-10.2) mg/dL Magnesium 2.2 (1.6-2.3) mg/dL Total Bilirubin 1.2 (0.2-1.3) mg/dL AST 25 (14-36) U/L ALT 28 (4-34) U/L Alkaline Phosphatase 87 (38-126) U/L Troponin I (0.000-0.034) ng/mL NT-Pro-B Natriuret Pep 4470 pg/mL Total Protein 7.2 (6.3-8.2) g/dL Albumin 4.2 (3.5-5.0) g/dL Influenza Type A (PCR) (Not Detectd) Influenza Type B (PCR) (Not Detectd) RSV (PCR) (Not Detectd) SARS-CoV-2 (PCR) (Not Detectd) 07/16/23 07/16/23 Range/Units 10:20 10:20 WBC (3.8-10.6) k/uL RBC (3.80-5.40) m/uL Hgb (11.4-16.0) gm/dL Hct (34.0-46.0) % MCV (80.0-100.0) fL MCH (25.0-35.0) pg MCHC (31.0-37.0) g/dL RDW (11.5-15.5) % Plt Count (150-450) k/uL MPV Neutrophils % % Lymphocytes % % Monocytes % % Eosinophils % % Basophils % % Neutrophils # (1.3-7.7) k/uL Lymphocytes # (1.0-4.8) k/uL Monocytes # (0-1.0) k/uL Eosinophils # (0-0.7) k/uL Basophils # (0-0.2) k/uL PT (10.0-12.5) sec INR (<1.2) APTT (22.0-30.0) sec Sodium (137-145) mmol/L Potassium (3.5-5.1) mmol/L Chloride (98-107) mmol/L Carbon Dioxide (22-30) mmol/L Anion Gap mmol/L BUN (7-17) mg/dL Creatinine (0.52-1.04) mg/dL Est GFR (CKD-EPI)AfAm (>60 ml/min/1.73 sqM) Est GFR (CKD-EPI)NonAf (>60 ml/min/1.73 sqM) Glucose (74-99) mg/dL Calcium (8.4-10.2) mg/dL Magnesium (1.6-2.3) mg/dL Total Bilirubin (0.2-1.3) mg/dL AST (14-36) U/L ALT (4-34) U/L Alkaline Phosphatase (38-126) U/L Troponin I <0.012 (0.000-0.034) ng/mL NT-Pro-B Natriuret Pep pg/mL Total Protein (6.3-8.2) g/dL Albumin (3.5-5.0) g/dL Influenza Type A (PCR) Not Detected (Not Detectd) Influenza Type B (PCR) Not Detected (Not Detectd) RSV (PCR) Not Detected (Not Detectd) SARS-CoV-2 (PCR) Not Detected (Not Detectd) Disposition <Marko Garcia - Last Filed: 07/16/23 10:34> Is patient prescribed a controlled substance at d/c from ED?: No Time of Disposition: 14:58 <Aldair Handy - Last Filed: 07/16/23 14:58> Clinical Impression: Congestive heart failure Disposition: ADMITTED IP TO THIS HOSP Referrals: Bennett Castillo MD [Primary Care Provider] - 1-2 days
[2023-07-16 10:44] LABS: ALT 28 U/L (4-34); AST 25 U/L (14-36); African American GFR (CKD) 85 (>60 ml/min/1.73 sqM); Albumin 4.2 g/dL (3.5-5.0); Alkaline Phosphatase 87 U/L (38-126); Anion Gap 10 mmol/L; Blood Urea Nitrogen 24 mg/dL (7-17); Calcium 9.3 mg/dL (8.4-10.2); Carbon Dioxide 27 mmol/L (22-30); Chloride 105 mmol/L (98-107); Glucose 149 mg/dL (74-99); Magnesium 2.2 mg/dL (1.6-2.3); Non-African American GFR(CKD) 74 (>60 ml/min/1.73 sqM); Potassium 4.1 mmol/L (3.5-5.1); Sodium 142 mmol/L (137-145); Total Bilirubin 1.2 mg/dL (0.2-1.3); Total Protein 7.2 g/dL (6.3-8.2)
[2023-07-16 10:52] LABS: INR 1.1 (<1.2); NT-Pro-B-Type Natriuretic Pept 4470 pg/mL; Partial Thromboplastin Time 24.5 sec (22.0-30.0); Prothrombin Time 11.4 sec (10.0-12.5)
--- NOTE | 2023-07-16 13:43 | XR ---
EXAMINATION TYPE: XR chest 2V DATE OF EXAM: 07/16/2023 1:36 PM CLINICAL INDICATION:Female, 83 years old with history of Chest PAIN; [facility] COMPARISON: 04/28/2023 TECHNIQUE: XR chest 2V Frontal and lateral views of the chest. FINDINGS: Lungs/Pleura: Elevated right diaphragm. There is no evidence of pleural effusion, focal consolidation , or pneumothorax. Pulmonary vascularity: Mild pulmonary vascular congestion. Heart/mediastinum: Cardiomediastinal silhouette is enlarged and stable. Atherosclerotic calcificatio ns are seen in the aorta. Musculoskeletal: No acute osseous pathology. IMPRESSION: 1. Cardiomegaly with pulmonary vascular prominence. Correlate with serum BNP. 2. Elevated right diaphragm correlate for phrenic nerve injury.
[2023-07-16] MEDS: ASPIRIN 325 MG TAB PO STA (15:15)
[2023-07-16] MEDS: FUROSEMIDE 10 MG/ML 4 ML VIAL IV SCH (16:04)
--- NOTE | 2023-07-16 16:31 | P.HPIM ---
History of Present Illness H&P Date: 07/16/23 Patient is a 83-year-old female with history of hypertension, dyslipidemia, atrial fibrillation, GERD, recent COVID-19, mediastinal mass, history of breast cancer status post resection and radiation, anxiety presenting with worsening shortness of breath. She claims that she recently had COVID about 1 month ago and recovered couple of weeks ago. However, 5 days ago she started to experience increased shortness of breath and chest heaviness. She also had trouble sleeping. She denies any orthopnea or PND. She denies any swelling in her legs. She denies any fevers or chills, sick contacts or travel history. Due to worsening shortness of breath, she decided to come to the hospital. She denies any current smoking, alcohol use or illicit drug use. In the ED, temperature was 98.8, pulse 115, respiratory rate 24, blood pressure 199/98, saturating at 94% on room air. EKG shows atrial fibrillation with RVR. Chest x-ray shows interstitial opacities with elevated white diaphragm. WBC 18 .3, hemoglobin 15.1, potassium 4.1, creatinine 0.75, troponin negative, proBNP 4470 up from 2800. Respiratory viral panel negative. Patient admitted for CHF exacerbation. Started on IV Lasix. Cardiology consulted. Pertinent positives and negatives as discussed in HPI, a complete review of syst ems was performed and all other systems are negative. Patient seen and examined at bedside. Vital signs reviewed General: nontoxic, no distress, appears at stated age Derm: warm, dry Head: atraumatic, normocephalic, symmetric Eyes: EOMI, no lid lag, anicteric sclera, pupils equal round reactive to light ENT: Nose and ears atraumatic Neck: No thyromegaly, supple Mouth: no lip lesion, mucus membranes moist Cardiovascular: S1S2 regular, tachycardic, no murmur, 2+ lower extremity bilateral pitting edema Lungs: Bibasilar rales, no wheeze, no accessory muscle use Abdominal: soft, nontender to palpation, no guarding, no appreciable organomegaly Ext: no gross muscle atrophy, muscle strength muscle strength 5 out of 5 in all 4 extremities, no contractures Neuro: CN II-XII grossly intact Psych: Alert, oriented, appropriate affect Assessment/Plan: Active: Diastolic CHF exacerbation Hypertensive urgency Patient started on Lasix 40 mg IV every 8 hours, monitor renal function, and electrolytes Topical nitroglycerin 1 inch 4 times daily, should help with heart failure symptoms as well as blood pressure Restart home antihypertensives when reconciled by pharmacy Cardiology consulted, pending recommendations Continuous telemetry Daily weights and I's and O's Leukocytosis Likely reactive Repeat CBC tomorrow Atrial fibrillation with RVR Patient recently started on calcium channel cece Continue Cardizem 60 3 times daily for rate control Continue home Eliquis Chronic: Dyslipidemia GERD Mediastinal mass History of breast cancer status post resection and radiation Anxiety Continue home medications when reconciled by pharmacy The patient is admitted with an anticipated last than 2 midnight stay as observation status for evaluation of CHF exacerbation and A-fib with RVR. Surrogate decision-maker: Spouse CODE STATUS: Full code DVT prophylaxis: Eliquwu Anticipated discharge date: Pending clinical course Anticipated discharge place: Pending clinical course A total of 55 minutes was spent on the care of this complex patient more than 50% of the time was spent in counseling and care coordination. Past Medical History Past Medical History: Atrial Fibrillation Additional Past Medical History / Comment(s): HX OF SKIN CA. Type 2 DM, diet controlled, breast cancer History of Any Multi-Drug Resistant Organisms: None Reported Past Surgical History: Adenoidectomy, Appendectomy, Section, Hysterectomy, Joint Replacement Additional Past Surgical History / Comment(s): DUC CATARACTS. Right knee replacement 2018 Past Anesthesia/Blood Transfusion Reactions: No Reported Reaction Additional Past Anesthesia/Blood Transfusion Reaction / Comment(s): no blood tx hx Past Psychological History: Anxiety Smoking Status: Former smoker Past Alcohol Use History: None Reported Past Drug Use History: None Reported - Past Family History Son(s) Family Medical History: Cancer Additional Family Medical History / Comment(s): THROAT Mother Family Medical History: AFIB Additional Family Medical History / Comment(s): Heart disease, passed at 78 related to a-fib per patient Father Additional Family Medical History / Comment(s): Heart disease, passed at 37 years old Medications and Allergies Home Medications Medication Instructions Recorded Confirmed Type Atorvastatin [Lipitor] 10 mg PO DAILY 09/01/18 04/28/23 History Famotidine [Pepcid] 20 mg PO BID 09/01/18 04/28/23 History Multivitamins, Thera [Multivitamin 1 tab PO DAILY 09/01/18 04/28/23 History (formulary)] NIFEdipine XL [Procardia XL] 30 mg PO BID 09/01/18 04/28/23 History ramipriL [Altace] 5 mg PO BID 09/01/18 04/28/23 History Aspirin [Adult Low Dose Aspirin EC] 81 mg PO DAILY #1 tablet. 09/12/18 04/28/23 Rx DULoxetine HCL [Cymbalta] 60 mg PO HS 07/10/22 04/28/23 History DULoxetine HCL [Cymbalta] 30 mg PO HS 04/28/23 04/28/23 History Letrozole [Femara] 2.5 mg PO DAILY 04/28/23 04/28/23 History Vitamin D3(Unknown Dose) 1 tab PO DAILY 04/28/23 04/28/23 History Apixaban [Eliquis] 5 mg PO BID #90 tab 04/29/23 Rx atenoloL [Tenormin] 50 mg PO DAILY #60 tab 04/29/23 Rx Allergies Allergy/AdvReac Type Severity Reaction Status Date / Time No Known Allergies Allergy Verified 07/16/23 10:02 Physical Exam Vitals: Vital Signs Temp Pulse Resp BP Pulse Ox 07/16/23 10:00 98.8 F 115 H 24 199/98 94 L Intake and Output 07/16/23 07/16/23 07/16/23 06:59 14:59 22:59 Other: Weight 90.718 kg Results CBC & Chem 7: 07/16/23 10:20 07/16/23 10:20 Labs: Abnormal Lab Results - Last 24 Hours (Table) 07/16/23 07/16/23 Range/Units 10:20 10:20 WBC 18.3 H (3.8-10.6) k/uL Hct 46.4 H (34.0-46.0) % Neutrophils # 15.6 H (1.3-7.7) k/uL Monocytes # 1.4 H (0-1.0) k/uL BUN 24 H (7-17) mg/dL Glucose 149 H (74-99) mg/dL
[2023-07-16] MEDS: DILTIAZEM ORAL 60 MG TAB PO SCH (19:40)
[2023-07-16] MEDS: APIXABAN 5 MG TAB PO SCH (20:33)
[2023-07-16] MEDS: lisinopriL 20 MG TAB PO SCH (23:13)
[2023-07-17] MEDS: LETROZOLE 2.5 MG TAB PO SCH (08:28)
[2023-07-17] MEDS: ATORVASTATIN 10 MG TAB PO SCH (08:28)
[2023-07-17] MEDS: FAMOTIDINE 20 MG TAB PO SCH (08:28)
[2023-07-17] MEDS ORDERED: ASPIRIN 325 MG TAB PO SCH (09:00)
[2023-07-17 09:53] LABS: Basophils % (A) 0 %; Eosinophils # (A) 0.1 k/uL (0-0.7); Eosinophils % (A) 1 %; HCT 50.1 % (34.0-46.0); HGB 16.5 gm/dL (11.4-16.0); Lymphocytes # (A) 1.1 k/uL (1.0-4.8); Lymphocytes % (A) 13 %; MCH 31.2 pg (25.0-35.0); MCV 94.7 fL (80.0-100.0); Mean Platelet Volume 10.6; Monocytes # (A) 0.9 k/uL (0-1.0); Monocytes % (A) 10 %; Neutrophils # (A) 6.2 k/uL (1.3-7.7); Neutrophils % (A) 73 %; Platelet Count 302 k/uL (150-450); RBC 5.29 m/uL (3.80-5.40); RDW 14.3 % (11.5-15.5); WBC 8.5 k/uL (3.8-10.6)
[2023-07-17 10:07] LABS: ALT 26 U/L (4-34); AST 24 U/L (14-36); African American GFR (CKD) 78 (>60 ml/min/1.73 sqM); Albumin 4.4 g/dL (3.5-5.0); Albumin/Globulin Ratio 1.4; Alkaline Phosphatase 89 U/L (38-126); Anion Gap 10 mmol/L; Blood Urea Nitrogen 22 mg/dL (7-17); Calcium 9.6 mg/dL (8.4-10.2); Carbon Dioxide 27 mmol/L (22-30); Chloride 100 mmol/L (98-107); Globulin 3.1 g/dL; Glucose 163 mg/dL (74-99); Magnesium 2.2 mg/dL (1.6-2.3); Non-African American GFR(CKD) 68 (>60 ml/min/1.73 sqM); Potassium 3.8 mmol/L (3.5-5.1); Sodium 137 mmol/L (137-145); Total Bilirubin 1.4 mg/dL (0.2-1.3); Total Protein 7.5 g/dL (6.3-8.2)
--- NOTE | 2023-07-17 12:30 | P.PN ---
Subjective Progress Note Date: 07/17/23 Hospital Course: 83-year-old female with history of hypertension, dyslipidemia, atrial fibrillation, GERD, recent COVID-19, mediastinal mass, history of breast cancer status post resection and radiation, anxiety presenting with worsening shortness of breath. In the ED, temperature was 98.8, pulse 115, respiratory rate 24, blood pressure 199/98, saturating at 94% on room air. EKG shows atrial fibrillation with RVR. Chest x-ray shows interstitial opacities with elevated white diaphragm. WBC 18.3, hemoglobin 15.1, potassium 4.1, creatinine 0.75, troponin negative, proBNP 4470 up from 2800. Respiratory viral panel negative. Patient admitted for CHF exacerbation and A-fib with RVR. Started on IV Lasix. Cardiology consulted. Subjective: Patient seen and examined at bedside. No acute events overnight. Shortness of breath slightly improved. Pertinent positives and negatives as discussed above, a complete review of systems was performed and all other systems are negative. Vitals Signs Reviewed. General: nontoxic, no distress, appears at stated age Derm: warm, dry Head: atraumatic, normocephalic, symmetric Eyes: EOMI, no lid lag, anicteric sclera, pupils equal round reactive to light ENT: Nose and ears atraumatic Neck: No thyromegaly, supple Mouth: no lip lesion, mucus membranes moist Cardiovascular: S1S2 regular, tachycardic, no murmur, 2+ lower extremity bilateral pitting edema Lungs: Bibasilar rales, no wheeze, no accessory muscle use Abdominal: soft, nontender to palpation, no guarding, no appreciable organomegaly Ext: no gross muscle atrophy, muscle strength muscle strength 5 out of 5 in all 4 extremities, no contractures Neuro: CN II-XII grossly intact Psych: Alert, oriented, appropriate affect Data Reviewed Today: Pertinent Labs: WBC 8.5, creatinine 0.81, potassium 3.8, magnesium 2.2, TSH 1.510 Imaging: No new imaging Assessment and Plan: Diastolic CHF exacerbation Hypertensive urgency Continue on Lasix 40 mg IV every 8 hours, monitor renal function, and electrolytes Topical nitroglycerin 1 inch 4 times daily, should help with heart failure symptoms as well as blood pressure Restarted on home lisinopril 20 twice daily Cardiology consulted, pending recommendations Continuous telemetry Daily weights and I's and O's Leukocytosis, reactive, resolved Atrial fibrillation with RVR, now rate controlled Patient recently started on calcium channel cece Continue Cardizem 60 3 times daily for rate control Continue home Eliquis Chronic: Dyslipidemia GERD Mediastinal mass History of breast cancer status post resection and radiation Anxiety DVT ppx: Eliquis Code status: Full code Anticipated discharge place: Pending clinical course Anticipated discharge time: Pending clinical course Objective - Vital Signs Vital signs: Vital Signs Temp 98.8 F 07/16/23 10:00 Pulse 88 07/17/23 10:00 Resp 16 07/17/23 10:00 BP 162/109 07/17/23 10:00 Pulse Ox 95 07/17/23 10:00 FiO2 Intake & Output 07/16/23 07/17/23 07/17/23 18:59 06:59 18:59 Weight 90.718 kg - Labs CBC & Chem 7: 07/17/23 09:19 07/17/23 09:19 Labs: Abnormal Lab Results - Last 24 Hours (Table) 07/17/23 07/17/23 Range/Units 09:19 09:19 Hgb 16.5 H (11.4-16.0) gm/dL Hct 50.1 H (34.0-46.0) % BUN 22 H (7-17) mg/dL Glucose 163 H (74-99) mg/dL Total Bilirubin 1.4 H (0.2-1.3) mg/dL
--- NOTE | 2023-07-17 12:59 | P.CRDCN ---
History of Present Illness Consult date: 07/17/23 Chief complaint: Shortness of breath History of present illness: The patient is a pleasant 83-year-old female patient with a past medical history significant for permanent atrial fibrillation as well as hypertension and dyslipidemia and valvular heart disease with mitral regurgitation identified on an echo was performed in 2022 and the echo at that time showed the mitral regurgitation to be moderate to severe. The patient presented to the hospital with progressive exertional dyspnea and bilateral lower extremities edema started about 3 weeks ago and got worse. She stated that she gained some weight as well. She stated that she has been compliant with her medications as an outpatient. Her pressure has been elevated when she presented to the hospital but does not consistent with hypertension crisis but consistent with a stage II hypertension. Giving the moderate to severe mitral regurgitation and elevated afterload/hypertension that likely to induce the heart failure. She underwent further workup including an EKG showed atrial fibrillation with diffuse nonspecific ST and T wave abnormalities and NT proBNP came in to be elevated and chest x-ray showed pulmonary vascular congestion with elevated right diaphragm. The rest of the blood work came in to be unremarkable. Acute coronary syndrome was ruled out. Currently she is feeling slightly better. She is on Lasix IV 40 mg 3 times daily. The examination is remarkable for bilateral rhonchi with irregular rhythm and systolic murmur and mild bilateral lower extremities edema. Assessment Heart failure exacerbation in the setting of moderate to severe mitral regurgita tion and uncontrolled blood pressure Hypertension consistent with a stage II hypertension Moderate to severe mitral regurgitation Preserved LV systolic function Permanent atrial fibrillation Multiple comorbid conditions including hypertension and dyslipidemia Plan Add Aldactone to the current medical regimen. Her GFR is within normal limits and her potassium is marginally low Continue the current dose of Lasix IV Continue monitor the kidney function and electrolytes Continue adjusting the medication to get the pressure under control Continue oral anticoagulation Follow-up with the pt Past Medical History Past Medical History: Atrial Fibrillation Additional Past Medical History / Comment(s): HX OF SKIN CA. Type 2 DM, diet c ontrolled, breast cancer History of Any Multi-Drug Resistant Organisms: None Reported Past Surgical History: Adenoidectomy, Appendectomy, Section, Hysterectomy, Joint Replacement Additional Past Surgical History / Comment(s): DUC CATARACTS. Right knee replacement 2018 Past Anesthesia/Blood Transfusion Reactions: No Reported Reaction Additional Past Anesthesia/Blood Transfusion Reaction / Comment(s): no blood tx hx Past Psychological History: Anxiety Smoking Status: Former smoker Past Alcohol Use History: None Reported Past Drug Use History: None Reported - Past Family History Son(s) Family Medical History: Cancer Additional Family Medical History / Comment(s): THROAT Mother Family Medical History: AFIB Additional Family Medical History / Comment(s): Heart disease, passed at 78 related to a-fib per patient Father Additional Family Medical History / Comment(s): Heart disease, passed at 37 years old Medications and Allergies Home Medications Medication Instructions Recorded Confirmed Type Atorvastatin [Lipitor] 10 mg PO DAILY 09/01/18 07/16/23 History Famotidine [Pepcid] 20 mg PO BID 09/01/18 07/16/23 History Multivitamins, Thera [Multivitamin 1 tab PO DAILY 09/01/18 07/16/23 History (formulary)] ramipriL [Altace] 5 mg PO BID 09/01/18 07/16/23 History DULoxetine HCL [Cymbalta] 60 mg PO HS 07/10/22 07/16/23 History DULoxetine HCL [Cymbalta] 30 mg PO HS 04/28/23 07/16/23 History Letrozole [Femara] 2.5 mg PO DAILY 04/28/23 07/16/23 History Vitamin D3(Unknown Dose) 1 tab PO DAILY 04/28/23 07/16/23 History Apixaban [Eliquis] 5 mg PO BID #90 tab 04/29/23 07/16/23 Rx Calcium W/Vitamin D3(Unknown Dose) 1 tab PO DAILY 07/16/23 07/16/23 History dilTIAZem HCL [dilTIAZem HCL 24Hr 180 mg PO HS 07/16/23 07/16/23 History ER (LA)] Allergies Allergy/AdvReac Type Severity Reaction Status Date / Time No Known Allergies Allergy Verified 07/16/23 16:49 Physical Exam Vitals: Vital Signs Pulse Resp BP Pulse Ox 07/17/23 10:00 88 16 162/109 95 07/17/23 08:31 90 20 153/103 94 L 07/17/23 07:45 98 16 160/110 91 L 07/17/23 06:08 98 17 157/94 91 L 07/17/23 05:02 89 17 07/17/23 03:36 90 18 140/77 95 07/16/23 23:15 112 H 17 141/98 07/16/23 20:36 112 H 19 160/135 07/16/23 18:40 106 H 18 140/105 93 L Results 07/17/23 09:19 07/17/23 09:19 Cardiac Enzymes 07/17/23 Range/Units 09:19 AST 24 (14-36) U/L CBC 07/17/23 Range/Units 09:19 WBC 8.5 (3.8-10.6) k/uL RBC 5.29 (3.80-5.40) m/uL Hgb 16.5 H (11.4-16.0) gm/dL Hct 50.1 H (34.0-46.0) % Plt Count 302 (150-450) k/uL Comprehensive Metabolic Panel 07/17/23 Range/Units 09:19 Sodium 137 (137-145) mmol/L Potassium 3.8 (3.5-5.1) mmol/L Chloride 100 (98-107) mmol/L Carbon Dioxide 27 (22-30) mmol/L BUN 22 H (7-17) mg/dL Creatinine 0.81 (0.52-1.04) mg/dL Glucose 163 H (74-99) mg/dL Calcium 9.6 (8.4-10.2) mg/dL AST 24 (14-36) U/L ALT 26 (4-34) U/L Alkaline Phosphatase 89 (38-126) U/L Total Protein 7.5 (6.3-8.2) g/dL Albumin 4.4 (3.5-5.0) g/dL Current Medications Generic Name Dose Route Start Last Admin Trade Name Freq PRN Reason Stop Dose Admin Apixaban 5 mg 07/16/23 21:00 07/17/23 07:42 Apixaban 5 Mg Tab PO 5 mg BID TRISH Administration Protocol Atorvastatin Calcium 10 mg 07/17/23 09:00 07/17/23 08:28 Atorvastatin 10 Mg Tab PO 10 mg DAILY TRISH Administration Diltiazem HCl 60 mg 07/16/23 16:30 07/17/23 07:42 Diltiazem Oral 60 Mg Tab PO 60 mg TID TRISH Administration Duloxetine HCl 30 mg 07/17/23 21:00 Duloxetine Hcl 30 Mg Capsule. PO [facility] Duloxetine HCl 60 mg 07/17/23 21:00 Duloxetine Hcl 60 Mg Capsule. PO HS [facility] Famotidine 20 mg 07/18/23 09:00 Famotidine 20 Mg Tab PO DAILY [facility] Furosemide 40 mg 07/16/23 16:00 07/17/23 07:42 Furosemide 10 Mg/Ml 4 Ml Vial IV 40 mg Q8H [facility] Administration Letrozole 2.5 mg 07/17/23 09:00 07/17/23 08:28 Letrozole 2.5 Mg Tab PO 2.5 mg DAILY [facility] Administration Lisinopril 20 mg 07/16/23 22:00 07/17/23 07:42 Lisinopril 20 Mg Tab PO 20 mg BID [facility] Administration Nitroglycerin 1 inch 07/17/23 18:00 Nitroglycerin Oint 1 Inch/Gm Packet TOPICAL QID [facility] 07/17/23 09:19 07/17/23 09:19
[2023-07-17] MEDS: SPIRONOLACTONE 25 MG TAB PO SCH (16:25)
[2023-07-17] MEDS: NITROGLYCERIN OINT 1 INCH/GM PACKET TOPICAL SCH (16:56)
[2023-07-17] MEDS: DULoxetine HCL 60 MG CAPSULE.DR PO SCH (20:11)
[2023-07-17] MEDS: DULoxetine HCL 30 MG CAPSULE.DR PO SCH (20:11)
[2023-07-18 07:50] LABS: African American GFR (CKD) 65 (>60 ml/min/1.73 sqM); Anion Gap 9 mmol/L; Blood Urea Nitrogen 31 mg/dL (7-17); Calcium 9.1 mg/dL (8.4-10.2); Carbon Dioxide 29 mmol/L (22-30); Chloride 99 mmol/L (98-107); Glucose 146 mg/dL (74-99); Magnesium 2.1 mg/dL (1.6-2.3); Non-African American GFR(CKD) 56 (>60 ml/min/1.73 sqM); Sodium 137 mmol/L (137-145)
[2023-07-18] MEDS: FAMOTIDINE 20 MG TAB PO SCH (09:05)
--- NOTE | 2023-07-18 12:36 | P.PN ---
Subjective Progress Note Date: 07/18/23 Hospital Course: 83-year-old female with history of hypertension, dyslipidemia, atrial fibrillation, GERD, recent COVID-19, mediastinal mass, history of breast cancer status post resection and radiation, anxiety presenting with worsening shortness of breath. In the ED, temperature was 98.8, pulse 115, respiratory rate 24, blood pressure 199/98, saturating at 94% on room air. EKG shows atrial fibrillation with RVR. Chest x-ray shows interstitial opacities with elevated white diaphragm. WBC 18.3, hemoglobin 15.1, potassium 4.1, creatinine 0.75, troponin negative, proBNP 4470 up from 2800. Respiratory viral panel negative. Patient admitted for CHF exacerbation and A-fib with RVR. Started on IV Lasix. Cardiology consulted. Echocardiogram pending. Subjective: Patient seen and examined at bedside. No acute events overnight. Shortness of breath slightly improved. Pertinent positives and negatives as discussed above, a complete review of systems was performed and all other systems are negative. Vitals Signs Reviewed. General: nontoxic, no distress, appears at stated age Derm: warm, dry Head: atraumatic, normocephalic, symmetric Eyes: EOMI, no lid lag, anicteric sclera, pupils equal round reactive to light ENT: Nose and ears atraumatic Neck: No thyromegaly, supple Mouth: no lip lesion, mucus membranes moist Cardiovascular: S1S2 regular, tachycardic, no murmur, 2+ lower extremity bilateral pitting edema Lungs: Bibasilar rales, no wheeze, no accessory muscle use Abdominal: soft, nontender to palpation, no guarding, no appreciable organomegaly Ext: no gross muscle atrophy, muscle strength muscle strength 5 out of 5 in all 4 extremities, no contractures Neuro: CN II-XII grossly intact Psych: Alert, oriented, appropriate affect Data Reviewed Today: Pertinent Labs: WBC 8.5, creatinine 0.81, potassium 3.8, magnesium 2.2, TSH 1.510 Imaging: No new imaging Assessment and Plan: Diastolic CHF exacerbation Hypertensive urgency Continue on Lasix 40 mg IV every 8 hours, monitor renal function, and electrolytes Topical nitroglycerin 1 inch 4 times daily, should help with heart failure symptoms as well as blood pressure lisinopril 20 twice daily Cardiology consulted, started patient on spironolactone 25 mg daily Continuous telemetry Daily weights and I's and O's Echocardiogram pending Leukocytosis, reactive, resolved Atrial fibrillation with RVR, now rate controlled Patient recently started on calcium channel cece Continue Cardizem 60 3 times daily for rate control Continue home Eliquis Chronic: Dyslipidemia GERD Mediastinal mass History of breast cancer status post resection and radiation Anxiety DVT ppx: Eliquis Code status: Full code Anticipated discharge place: Pending clinical course Anticipated discharge time: Pending clinical course Objective - Vital Signs Vital signs: Vital Signs Temp 98.3 F 07/18/23 07:00 Pulse 90 07/18/23 07:00 Resp 14 07/18/23 07:00 BP 162/89 07/18/23 07:00 Pulse Ox 94 L 07/18/23 07:00 FiO2 Intake & Output 07/17/23 07/18/23 07/18/23 18:59 06:59 18:59 Intake Total 118 Balance 118 Weight 86.438 kg 85.3 kg Intake: Oral 118 Other: Voiding Method Toilet Toilet Toilet # Voids 2 - Labs CBC & Chem 7: 07/17/23 09:19 07/18/23 06:24 Labs: Abnormal Lab Results - Last 24 Hours (Table) 07/18/23 Range/Units 06:24 BUN 31 H (7-17) mg/dL Glucose 146 H (74-99) mg/dL
--- NOTE | 2023-07-18 18:16 | P.PN ---
Subjective Progress Note Date: 07/18/23 Principal diagnosis: CHF The patient is a pleasant 83-year-old female patient with a past medical history significant for permanent atrial fibrillation as well as hypertension and dyslipidemia and valvular heart disease with mitral regurgitation identified on an echo was performed in 2022 and the echo at that time showed the mitral regurgitation to be moderate to severe. The patient presented to the hospital with progressive exertional dyspnea and bilateral lower extremities edema started about 3 weeks ago and got worse. She stated that she gained some weight as well. She stated that she has been compliant with her medications as an outpatient. Her pressure has been elevated when she presented to the hospital but does not consistent with hypertension crisis but consistent with a stage II hypertension. Giving the moderate to severe mitral regurgitation and elevated afterload/hypertension that likely to induce the heart failure. She underwent further workup including an EKG showed atrial fibrillation with diffuse nonspecific ST and T wave abnormalities and NT proBNP came in to be elevated and chest x-ray showed pulmonary vascular congestion with elevated right diaphragm. The rest of the blood work came in to be unremarkable. Acute coronary syndrome was ruled out. Currently she is feeling slightly better. She is on Lasix IV 40 mg 3 times daily. The examination is remarkable for bilateral rhonchi with irregular rhythm and systolic murmur and mild bilateral lower extremities edema. July The patient was seen and evaluated this morning. She is feeling better in terms of shortness of breath and lower extremities edema. The blood pressure has been under good control on the current medical regimen. She has been tolerating the current dose of Lasix IV and Aldactone. The echo is still pending. From the cardiovascular standpoint of view, I would suggest continue the current medical regimen including the current dose of Lasix IV for additional 24 hours and continue monitoring the kidney function and electrolytes. The examination is remarkable for significant systolic murmur and bilateral rhonchi and mild bilateral lower extremities edema. Assessment Heart failure exacerbation in the setting of moderate to severe mitral regurgitation and uncontrolled blood pressure Hypertension consistent with a stage II hypertension Moderate to severe mitral regurgitation Preserved LV systolic function Permanent atrial fibrillation Multiple comorbid conditions including hypertension and dyslipidemia Plan Continue the current dose of Lasix IV Continue monitor the kidney function and electrolytes Continue adjusting the medication to get the pressure under control Continue oral anticoagulation Follow-up with the pt Objective - Vital Signs Vital signs: Vital Signs Temp 98.2 F 07/18/23 14:17 Pulse 78 07/18/23 14:17 Resp 15 07/18/23 14:17 BP 118/75 07/18/23 14:17 Pulse Ox 95 07/18/23 14:17 FiO2 Intake & Output 07/17/23 07/18/23 07/18/23 18:59 06:59 18:59 Intake Total 118 Balance 118 Weight 86.438 kg 85.3 kg Intake: Oral 118 Other: Voiding Method Toilet Toilet Toilet # Voids 2 4 # Bowel Movements 0 - Labs CBC & Chem 7: 07/17/23 09:19 07/18/23 06:24 Labs: Abnormal Lab Results - Last 24 Hours (Table) 07/18/23 Range/Units 06:24 BUN 31 H (7-17) mg/dL Glucose 146 H (74-99) mg/dL
--- NOTE | 2023-07-18 20:03 | CA ---
Transthoracic Echo Report Name: Maranda Hidalgo Age: 83 Gender: F : 1940 Exam Date: 07/17/2023 13:30 Exam Location: [facility] Ht (in): 62 Wt (lb): 200 Ordering Physician: Elliott Florez MD ([id number]) Attending/Referring Phys: Crate Tier Terry Love RDCS Procedure CPT: Indications: chf Cardiac Hx: Technical Quality: Contrast 1: Total Dose (mL): Contrast 2: Total Dose (mL): MEASUREMENTS (Male / Female) Normal Values 2D ECHO LV Diastolic Diameter PLAX 4.8 cm 4.2 - 5.9 / 3.9 - 5.3 cm LV Systolic Diameter PLAX 4.1 cm IVS Diastolic Thickness 1.4 cm 0.6 - 1.0 / 0.6 - 0.9 cm LVPW Diastolic Thickness 0.7 cm 0.6 - 1.0 / 0.6 - 0.9 cm LV Relative Wall Thickness 0.4 LVOT Diameter 1.9 cm Aortic Root Diameter 4.0 cm LA Systolic Diameter LX 5.1 cm 3.0 - 4.0 / 2.7 - 3.8 cm DOPPLER AV Peak Velocity 120.1 cm/s AV Peak Gradient 5.8 mmHg AV Mean Velocity 92.5 cm/s AV Mean Gradient 3.7 mmHg AV Velocity Time Integral 17.9 cm LVOT Peak Velocity 108.6 cm/s LVOT Peak Gradient 4.7 mmHg LVOT Velocity Time Integral 21.2 cm LVOT Stroke Volume 61.3 cm??? LVOT Stroke Volume Index 32.1 ml/m??? LVOT Cardiac Index 3464.9 cm???/min???m??? AV Area Cont Eq vti 3.4 cm??? AV Area Cont Eq pk 2.6 cm??? MR Peak Velocity 591.7 cm/s MR Peak Gradient 140.0 mmHg TR Peak Velocity 293.7 cm/s TR Peak Gradient 34.5 mmHg PV Peak Velocity 79.2 cm/s PV Peak Gradient 2.5 mmHg FINDINGS Left Ventricle Moderately increased septal wall thickness. Left ventricular ejection fraction is estimated at 50 %. Moderate concentric left ventricular hypertrophy. Right Ventricle Unable to estimate the right ventricular systolic pressure. Normal right ventricular size. Right Atrium Normal right atrial size. Left Atrium Severely increased left atrial diameter. Mitral Valve [id number] mitral regurgitation. Aortic Valve Trileaflet aortic valve. Tricuspid Valve [id number] tricuspid regurgitation. Pulmonic Valve Trace pulmonic regurgitation. Pericardium No pericardial effusion. Aorta Aortic dilatation measuring up to 4.0 cm CONCLUSIONS Previous echo recorded on 02/23/2023. Technically difficult study for interpretation Below normal LV systolic function with EF at 50% Moderate to severe mitral regurgitation. Severe mitral annular calcification Aortic sclerosis with mild aortic insufficiency Previewed by: Dr. Elliott Florez MD (Electronically Signed) Final Date: 18 July 2023 20:03
[2023-07-19 08:53] LABS: BUN/Creat Ratio 29.36 Ratio (12.00-20.00); Blood Urea Nitrogen 32.3 mg/dL (9.0-27.0); Calcium 9.1 mg/dL (8.7-10.3); Carbon Dioxide 23.8 mmol/L (21.6-31.8); Chloride 96 mmol/L (96-109); Glucose 159 mg/dL (70-110); Magnesium 2.2 mg/dL (1.5-2.4); Potassium 3.9 mmol/L (3.5-5.5); Sodium 140 mmol/L (135-145)
[2023-07-19 09:08] VITALS: BP 120/80; PULSE 61; RESP 15; TEMP 98.4
--- NOTE | 2023-07-19 10:31 | P.DS ---
Providers Date of admission: 07/16/23 15:00 Expected date of discharge: 07/19/23 Attending physician: Adria Gill MD Consults: 07/16/23 14:58 Consult Physician Routine Consulting Provider: Elliott Florez Consult Reason/Comments: chf Do you want consulting provider notified?: Yes Primary care physician: Bennett Boles [facility] Course: Discharge Diagnosis: Diastolic CHF exacerbation Hypertensive urgency Leukocytosis, reactive Atrial fibrillation with RVR Hospital Course: 83-year-old female with history of hypertension, dyslipidemia, atrial fibrillation, GERD, recent COVID-19, mediastinal mass, history of breast cancer status post resection and radiation, anxiety presenting with worsening shortness of breath. In the ED, temperature was 98.8, pulse 115, respiratory rate 24, blood pressure 199/98, saturating at 94% on room air. EKG shows atrial fibrillation with RVR. Chest x-ray shows interstitial opacities with elevated white diaphragm. WBC 18.3, hemoglobin 15.1, potassium 4.1, creatinine 0.75, troponin negative, proBNP 4470 up from 2800. Respiratory viral panel negative. Patient admitted for CHF exacerbation and A-fib with RVR. Started on IV Lasix. Cardiology consulted. Echocardiogram showed LVEF 50%, moderate to severe MR. IV Lasix converted to oral. Patient to follow-up with cardiology and PCP outpatient. Patient seen and examined at bedside. Vital signs reviewed and stable. General: Nontoxic, no distress, appears at stated age Derm: Warm, dry Head: Atraumatic, normocephalic, symmetric Eyes: EOMI, no lid lag, anicteric sclera Mouth: No lip lesion, mucus membranes moist Cardiovascular: S1S2 reg, no murmur Lungs: CTA bilateral, no rhonchi, no rales, no accessory muscle use Abdominal: Soft, nontender to palpation, no guarding, no appreciable organomegaly Ext: No gross muscle atrophy, no edema, no contractures Neuro: CN II-XI grossly intact, no focal neuro deficits Psych: Alert, oriented, appropriate affect A total of 33 minutes of time were spent preparing this complex discharge summary. Patient was discharged on 07/19/2023 at 1029. Patient Condition at Discharge: Stable Plan - Discharge Summary Discharge Rx Participant: No New Discharge Prescriptions: New Furosemide [Lasix] 40 mg PO BID@0900,1600 #90 tab Spironolactone [Aldactone] 25 mg PO DAILY #90 tab Continue Multivitamins, Thera [Multivitamin (formulary)] 1 tab PO DAILY Famotidine [Pepcid] 20 mg PO BID ramipriL [Altace] 5 mg PO BID Atorvastatin [Lipitor] 10 mg PO DAILY DULoxetine HCL [Cymbalta] 30 mg PO HS Letrozole [Femara] 2.5 mg PO DAILY dilTIAZem HCL [dilTIAZem HCL 24Hr ER (LA)] 180 mg PO HS DULoxetine HCL [Cymbalta] 60 mg PO HS Vitamin D3(Unknown Dose) 1 tab PO DAILY Apixaban [Eliquis] 5 mg PO BID #90 tab Calcium W/Vitamin D3(Unknown Dose) 1 tab PO DAILY Discharge Medication List Atorvastatin [Lipitor] 10 mg PO DAILY 09/01/18 [History] Famotidine [Pepcid] 20 mg PO BID 09/01/18 [History] Multivitamins, Thera [Multivitamin (formulary)] 1 tab PO DAILY 09/01/18 [History] ramipriL [Altace] 5 mg PO BID 09/01/18 [History] DULoxetine HCL [Cymbalta] 60 mg PO HS 07/10/22 [History] DULoxetine HCL [Cymbalta] 30 mg PO HS 04/28/23 [History] Letrozole [Femara] 2.5 mg PO DAILY 04/28/23 [History] Vitamin D3(Unknown Dose) 1 tab PO DAILY 04/28/23 [History] Apixaban [Eliquis] 5 mg PO BID #90 tab 04/29/23 [Rx] Calcium W/Vitamin D3(Unknown Dose) 1 tab PO DAILY 07/16/23 [History] dilTIAZem HCL [dilTIAZem HCL 24Hr ER (LA)] 180 mg PO HS 07/16/23 [History] Furosemide [Lasix] 40 mg PO BID@0900,1600 #90 tab 07/19/23 [Rx] Spironolactone [Aldactone] 25 mg PO DAILY #90 tab 07/19/23 [Rx] Follow up Appointment(s)/Referral(s): Adin Danielson DO [STAFF PHYSICIAN] - 2 Weeks Bennett Castillo MD [Primary Care Provider] - 1-2 days Patient Instructions/Handouts: Heart Failure (DC) Activity/Diet/Wound Care/Special Instructions: Please see your PCP and barista. Discharge Disposition: HOME SELF-CARE
--- NOTE | 2023-07-19 10:47 | P.PN ---
Subjective Progress Note Date: 07/19/23 Principal diagnosis: CHF The patient is a pleasant 83-year-old female patient with a past medical history significant for permanent atrial fibrillation as well as hypertension and dyslipidemia and valvular heart disease with mitral regurgitation identified on an echo was performed in 2022 and the echo at that time showed the mitral regurgitation to be moderate to severe. The patient presented to the hospital with progressive exertional dyspnea and bilateral lower extremities edema started about 3 weeks ago and got worse. She stated that she gained some weight as well. She stated that she has been compliant with her medications as an outpatient. Her pressure has been elevated when she presented to the hospital but does not consistent with hypertension crisis but consistent with a stage II hypertension. Giving the moderate to severe mitral regurgitation and elevated afterload/hypertension that likely to induce the heart failure. She underwent further workup including an EKG showed atrial fibrillation with diffuse nonspecific ST and T wave abnormalities and NT proBNP came in to be elevated and chest x-ray showed pulmonary vascular congestion with elevated right diaphragm. The rest of the blood work came in to be unremarkable. Acute coronary syndrome was ruled out. Currently she is feeling slightly better. She is on Lasix IV 40 mg 3 times daily. The examination is remarkable for bilateral rhonchi with irregular rhythm and systolic murmur and mild bilateral lower extremities edema. July The patient was seen and evaluated this morning. She is feeling better in terms of shortness of breath and lower extremities edema. The blood pressure has been under good control on the current medical regimen. She has been tolerating the current dose of Lasix IV and Aldactone. The echo is still pending. From the cardiovascular standpoint of view, I would suggest continue the current medical regimen including the current dose of Lasix IV for additional 24 hours and continue monitoring the kidney function and electrolytes. The examination is remarkable for significant systolic murmur and bilateral rhonchi and mild bilateral lower extremities edema. 3/ Patient has been maintained on IV Lasix 40 mg every 8 hours. She states her breathing is better today. She is feeling much improved and lower extremity edema is improved. Blood pressure 120/80, heart rate 60s and 70s, pulse ox 98% on room air. Repeat blood work reveals sodium 140, potassium 3.9, BUN 32 creatinine 1.1. Echocardiogram reveals EF of 50%, moderate to severe mitral regurgitation, severe mitral annular calcification. Aortic sclerosis with mild aortic insufficiency. Technically difficult study. The examination is remarkable for significant systolic murmur and lungs are clear to auscultation, no bilateral lower extremities edema. Assessment Heart failure exacerbation in the setting of moderate to severe mitral regurgitation and uncontrolled blood pressure Hypertension consistent with a stage II hypertension Moderate to severe mitral regurgitation Preserved LV systolic function Permanent atrial fibrillation Multiple comorbid conditions including hypertension and dyslipidemia Plan Transition IV Lasix to oral 40 mg twice daily Continue other cardiac medications Patient is cleared for discharge and may follow-up in the office in 1 to 2 weeks. Nurse practitioner note has been reviewed, I agree with documented findings and plan of care. Patient was seen and examined. Objective - Vital Signs Vital signs: Vital Signs Temp 98.4 F 07/19/23 07:00 Pulse 61 07/19/23 07:00 Resp 15 07/19/23 07:00 BP 120/80 07/19/23 07:00 Pulse Ox 98 07/19/23 07:00 FiO2 Intake & Output 07/18/23 07/19/23 07/19/23 18:59 06:59 18:59 Weight 85.3 kg Other: Voiding Method Toilet # Voids 4 2 # Bowel Movements 0 - Labs CBC & Chem 7: 07/17/23 09:19 07/19/23 04:11 Labs: Abnormal Lab Results - Last 24 Hours (Table) 07/19/23 Range/Units 04:11 Anion Gap 20.20 H (4.00-12.00) mmol/L BUN 32.3 H (9.0-27.0) mg/dL Est GFR (CKD-EPI) 50 L (>=60) BUN/Creatinine Ratio 29.36 H (12.00-20.00) Ratio Glucose 159 H (70-110) mg/dL
[2023-07-19] MEDS ORDERED: FUROSEMIDE 40 MG TAB PO SCH (16:00)
== END 2023-07-19 14:00 | disposition home or self-care (01) ==
LOC: EC 09:53 → 6NMEDSUR 15:00
PROVIDERS: ADMIT Student in an Organized Health Care Education/Training Program; ATTEND Student in an Organized Health Care Education/Training Program
DX: I11.0 Hypertensive heart disease with heart failure (principal); I50.33 Acute on chronic diastolic (congestive) heart failure; E11.9 Type 2 diabetes mellitus without complications; I16.0 Hypertensive urgency; K21.9 Gastro-esophageal reflux disease without esophagitis; E78.5 Hyperlipidemia, unspecified; I10 Essential (primary) hypertension; F41.9 Anxiety disorder, unspecified; I34.0 Nonrheumatic mitral (valve) insufficiency; I48.21 Permanent atrial fibrillation; Z86.16 Personal history of COVID-19; Z79.899 Other long term (current) drug therapy; Z85.828 Personal history of other malignant neoplasm of skin; Z85.3 Personal history of malignant neoplasm of breast; Z79.82 Long term (current) use of aspirin; Z79.01 Long term (current) use of anticoagulants; Z87.891 Personal history of nicotine dependence; Z11.52 Encounter for screening for COVID-19; Z79.811 Long term (current) use of aromatase inhibitors
CPT/HCPCS: 96376 ×4; 96374; 99285; 36415; 93306; 83880; 80053 ×2; 80048 ×2; 84443; 83735 ×4; 84484; 85025 ×2; 85610; 85730; 87636; 71046; G0378 ×4; J1940 ×4

== ENCOUNTER → 2024-07-13 | Outpatient (CLI) | payer MEDICARE ==
--- NOTE | 2024-07-13 12:14 | MM ---
Reason for Exam: Screening (asymptomatic). Last screening mammogram was performed 12 month(s) ago. Patient History: Menarche at age 13. First Full-Term at age 30. Late child-bearing (after 30). Left ovary removed at age 40. Right ovary removed at age 40. Hysterectomy at age 40. Postmenopausal. Patient has history of breast feeding. Breast cancer, left, age 82. Estrogen for 20 years from age 40 until age 60. 09/03/2022, Lumpectomy on the Left side. 09/03/2022, Malignant US breast localization LT on the left side. 07/20/2022, Malignant US biopsy breast VAD LT on the left side. 2022, Radiation Therapy on the left side. Prior Study Comparison: 07/20/2022 Left MG diagnostic mammo LT wo CAD., [facility]. 09/03/2022 Left MG diagnostic mammo LT wo CAD., [facility]. 07/12/2023 Bilateral MG 3D diag mammo w/cad [facility], [facility]. Tissue Density: There are scattered areas of fibroglandular density. Findings: Analyzed By CAD. Left breast surgical clips. Right breast: There is no suspicious group of microcalcifications or new suspicious mass. Left breast: There is no suspicious group of microcalcifications or new suspicious mass. Overall Assessment: Negative, BI-RAD 1 Management: Screening Mammogram of both breasts in [address] [facility] will attempt to contact patient to return for supplemental views and ultrasound if indicated. Patient should continue monthly self-breast exams. A clinical breast exam by your physician is recommended on an annual basis. This exam should not preclude additional follow-up of suspicious palpable abnormalities. Note on Eloise scores and lifetime risk: 1. A Eloise score greater than 3% is considered moderate risk. If this is the case, consider specialist referral to assess eligibility for a risk reducing agent. 2. If overall lifetime risk for the development of breast cancer is 20% or higher, the patient may qualify for future screening with alternating mammogram and breast MRI. [facility], , 07/13/2024 12:11 PM. Electronically signed and approved by: Hoang Butts DO
== END | disposition home or self-care (01) ==
LOC: RADMAMWWP 11:36
PROVIDERS: ATTEND Internal Medicine Hematology & Oncology
DX: Z12.31 Encounter for screening mammogram for malignant neoplasm of breast (principal); R92.323 Mammographic fibroglandular density, bilateral breasts; Z78.0 Asymptomatic menopausal state; Z85.3 Personal history of malignant neoplasm of breast
CPT/HCPCS: 77063; 77067